=== PATIENT | male | born 1960 | race Caucasian/White ===

== ENCOUNTER → 2016-10-11 | Outpatient (CLI) | payer OTHER ==
--- NOTE | 2016-10-18 11:30 | P.ARTDOP ---
Arterial Doppler LOWER EXTREMITY ARTERIAL DOPPLER: DATE OF SERVICE: 10/11/2016 Reason for study: Bilateral leg pain. Doppler waveforms: Multiphasic bilaterally throughout. Pulse volume recording: Normal configuration throughout. Pressure gradients: None. Ankle-brachial indices: Greater than 1 bilaterally. Toe pressures: 127 on the right, 1:30 on the left Impression: Normal study.
== END | disposition home or self-care (01) ==
LOC: RADUSWWP 10:51
PROVIDERS: ATTEND Family Medicine
DX: M79.669 Pain in unspecified lower leg (principal)
CPT/HCPCS: 93923

== ENCOUNTER → 2018-07-24 | Outpatient (CLI) | payer OTHER ==
--- NOTE | 2018-07-25 10:26 | BD ---
EXAMINATION TYPE: Axial Bone Density DATE OF EXAM: 07/24/2018 COMPARISON: NONE CLINICAL HISTORY: COPD Height: 5'5 1/2 Weight: 192 FRAX RISK QUESTIONS: Family History (Parent hip fracture): Y Glucocorticoids (More than 3mos): y (Ex: prednisone, prednisolone, methylprednisolone, dexamethasone, and hydrocortisone). Secondary Osteoporosis: Current Tobacco Use: y RISK FACTORS HISTORY OF: Active: n Poor Health: y MEDICATIONS: Prednisone or other steroids: y How Lon year Additional Medications: COPD, blood pressure, cholesterol Additional History: EXAM MEASUREMENTS: Bone mineral densitometry was performed using the [facility]. Bone mineral density as measured about the Lumbar spine is: ----- L1-L4(G/cm2): 0.948 T Score Values are as follows: ----- L2: -1.4 ----- L3: -1.9 ----- L4: -2.8 ----- L1-L4: -1.9 Bone mineral density about the R hip (g/cm2): 0.782 Bone mineral density about the L hip (g/cm2): 0.785 T Score values are as follows: -----R Neck: -1.8 -----L Neck: -1.8 -----R Total: -1.6 -----L Total: -1.3 IMPRESSION: Osteopenia (T Score between -2.5 and -1) persists both hips and low back. There is slightly increased risk of fracture and the patient may be considered for treatment. Re-Screen 2-5 years. NOTE: T-SCORE=SD OF THE YOUNG ADULT MEAN.
== END | disposition home or self-care (01) ==
LOC: RADBDWWP 16:16
PROVIDERS: ATTEND Family Medicine
DX: M85.851 Other specified disorders of bone density and structure, right thigh (principal); M85.852 Other specified disorders of bone density and structure, left thigh; M85.88 Other specified disorders of bone density and structure, other site
CPT/HCPCS: 77080

== ENCOUNTER → 2018-09-02 | Outpatient (CLI) | payer OTHER ==
--- NOTE | 2018-09-02 15:33 | CT ---
EXAMINATION TYPE: CT iac wo con DATE OF EXAM: 09/02/2018 COMPARISON: NONE HISTORY: fluid in left ear, chronic mastoiditis per order. CT DLP: 161 mGycm. Automated Exposure Control for Dose Reduction was Utilized. TECHNIQUE: CT scan of internal auditory canal is performed without contrast, thin cut axial images ar e obtained, coronal reformatted images are also reviewed. FINDINGS: The external auditory canals are patent bilaterally. There is evidence of prior mastoid or temporal surgery on the left with complete opacification of the residual left mastoid air cells that show surrounding sclerosis. Right mastoid air cells show no suspicious opacification. The middle ear ossicles are felt within normal limits on the right. There is no evidence of suspicious surrounding soft tissue density to suggest cholesteatoma. Left-sided middle ear ossicles are felt satisfactory w ith diffuse surrounding soft tissue. The scutum is however preserved bilaterally. The cochlea and th e semicircular canals are symmetric and unremarkable. Vestibular aqueduct and internal carotid canal appear unremarkable. Temporomandibular joints are maintained bilaterally. Visualized paranasal sinuses are grossly clear. Visualized portion brain parenchyma is felt within normal limits. IMPRESSION: Persistent left-sided mastoiditis may be acute on chronic despite prior left-sided surger y. There is left middle ear infection, cannot exclude cholesteatoma despite relative preservation of scutum.
== END | disposition home or self-care (01) ==
LOC: RADCTMAIN 14:58
PROVIDERS: ATTEND Otolaryngology Otolaryngology/Facial Plastic Surgery
DX: H66.92 Otitis media, unspecified, left ear (principal); H70.12 Chronic mastoiditis, left ear
CPT/HCPCS: 70480

== ENCOUNTER → 2018-10-21 | Outpatient (CLI) | payer OTHER ==
--- NOTE | 2018-10-21 14:51 | CT ---
EXAMINATION TYPE: CT angio chest DATE OF EXAM: 10/21/2018 COMPARISON: Outside chest CT April 25, 2018 HISTORY: Thoracic aortic aneurysm without rupture CT DLP: 355.2 mGycm. Automated Exposure Control for Dose Reduction was Utilized. CONTRAST: CTA scan of the thorax is performed with IV Contrast, patient injected with 100 mL of Isovue 370, pul monary embolism protocol. MIP Images are created on CT scanner and reviewed. FINDINGS: LUNGS: Moderate underlying emphysematous changes are redemonstrated most prominent in the bilateral u pper lobes. No pleural effusion or pneumothorax. No suspicious consolidation. MEDIASTINUM: There is satisfactory enhancement of the pulmonary artery and its branches, there is no CT evidence for pulmonary embolism. There are no greater than 1 cm hilar or mediastinal lymph nodes. No cardiomegaly or pericardial effusion is seen. Main pulmonary artery measures 2.5 cm diameter ax ial image 22. Adjacent ascending aorta measures 4.1 cm in diameter axial image 22. There is ectatic c ourse to the descending aorta. OTHER: Small degree of bilateral gynecomastia is redemonstrated. Mild to moderate multilevel spurring lower thoracic spine is again seen. IMPRESSION: Stable 4.1 cm ascending aortic aneurysm.
== END | disposition home or self-care (01) ==
LOC: RADCTMAIN 13:03
PROVIDERS: ATTEND Surgery
DX: I71.2 Thoracic aortic aneurysm, without rupture (principal); Z88.0 Allergy status to penicillin
CPT/HCPCS: 82565; 84520; 71275; 36415; Q9967

== ENCOUNTER → 2019-10-24 | Outpatient (CLI) | payer OTHER ==
--- NOTE | 2019-10-24 18:34 | CT ---
EXAMINATION TYPE: CT angio chest DATE OF EXAM: 10/24/2019 6:07 PM COMPARISON: 10/21/2018 HISTORY: Thoracic aortic aneurysm w/out rupture. Pt not reporting any issues CT DLP: 604.60 mGycm Automated exposure control for dose reduction was used. CONTRAST: CTA scan of the thorax is performed with IV Contrast, patient injected with 80 mL of Isovue 370, pulm onary embolism protocol. . FINDINGS: LUNGS: Diffuse emphysematous changes are noted. There is no consolidative process, pleural effusion o r pneumothorax. No suspicious pulmonary nodule. MEDIASTINUM: There is satisfactory enhancement of the pulmonary artery and its branches, there is no CT evidence for pulmonary embolism. There are no greater than 1 cm hilar or mediastinal lymph nodes. Main pulmonary artery measures 2.5 cm diameter axial image 22. Adjacent ascending aorta measures 4. 3 cm and previously measured 4.1 cm in diameter. There is ectatic course to the descending aorta. Cor onary artery calcification noted. OTHER: Small degree of bilateral gynecomastia is redemonstrated. Mild to moderate multilevel spurrin g lower thoracic spine is again seen. Postsurgical change involving the left shoulder. Chronic deform ity of the right rib cage. IMPRESSION: 1. Diffuse COPD with coronary artery calcification. 2. A 4.3 cm ascending thoracic aortic aneurysm previously measuring 4.1 cm.
== END | disposition home or self-care (01) ==
LOC: RADCTMAIN 17:01
PROVIDERS: ATTEND Surgery
DX: I25.10 Atherosclerotic heart disease of native coronary artery without angina pectoris (principal); J44.9 Chronic obstructive pulmonary disease, unspecified; I71.2 Thoracic aortic aneurysm, without rupture; Z88.0 Allergy status to penicillin; Z88.8 Allergy status to other drugs, medicaments and biological substances
CPT/HCPCS: 82565; 84520; 71275; 36415; Q9967

== ENCOUNTER → 2020-01-28 | Outpatient (CLI) | payer OTHER ==
--- NOTE | 2020-01-29 07:15 | US ---
EXAMINATION TYPE: US bladder DATE OF EXAM: 01/28/2020 COMPARISON: CT 06/16/2015 CLINICAL HISTORY: R35.0 frequency of micturition. Diabetic, nighttime frequency per patient x 6 month s. EXAM MEASUREMENTS: Post Void Residual Volume: 1.8 mL Urinary bladder shows an anechoic lumen Mildly thickened bladder wall at 3.5mm A/P, the urinary bladder does not appear well distended magdal[employer] Color Doppler performed to assess ureteral jets. Bilateral Jets seen: yes Normal Post Void Residual (less than 50ml): yes IMPRESSION: No significant post void residual volume, nonspecific bladder wall thickening, correlate to exclude cystitis, findings may be due to lack of distention
== END | disposition home or self-care (01) ==
LOC: RADUSWWP 14:55
PROVIDERS: ATTEND Family Medicine
DX: R93.41 Abnormal radiologic findings on diagnostic imaging of renal pelvis, ureter, or bladder (principal); R35.0 Frequency of micturition
CPT/HCPCS: 76857

== ENCOUNTER 2020-02-15 13:54 | Emergency (ER) | payer OTHER ==
[2020-02-15 14:10] VITALS: BP 123/79; PULSE 79; RESP 20; TEMP 97.8
[2020-02-15] MEDS ORDERED: LIDOCAINE 1%-EPI 1:100,000 20 ML VIAL SQ STA (14:35)
[2020-02-15] MEDS ORDERED: SULFAMETHOX-TMP 800-160MG 1 EACH TAB PO STA (14:35)
--- NOTE | 2020-02-15 15:11 | ED ---
Skin/Abscess/FB HPI - General Chief complaint: Skin/Abscess/Foreign Body Stated complaint: Groin Pain Time Seen by Provider: 02/15/20 14:21 Source: patient Mode of arrival: ambulatory Limitations: no limitations - History of Present Illness Initial comments: 59-year-old male presenting to emergency department with a chief complaint of a boil on his groin. Patient reports this started several days ago with gradual increase in severity. The states she attempted to drain it by pressing on it with no significant success. Patient reports it is very tender to touch. Does report surrounding erythema. Denies any trauma to the region. Denies any history of abscesses or MRSA. Denies any night sweats fevers or chills. - Related Data Home Medications Medication Instructions Recorded Confirmed Albuterol Sulfate [Proair Hfa] 1 - 2 puff INHALATION Q6HR PRN 08/10/15 12/26/17 Cholecalciferol [Vitamin D3] 1,000 unit PO DAILY 08/10/15 12/26/17 Esomeprazole Magnesium [NexIUM] 40 mg PO DAILY 08/10/15 12/26/17 Hydrocodone/Acetaminophen [[place] 1 tab PO Q6H PRN 08/10/15 12/26/17 10-325] Ibuprofen [Motrin] 800 mg PO DAILY 08/10/15 12/26/17 Meclizine [Antivert] 12.5 mg PO ONCE 08/10/15 12/26/17 Multivitamin [Men's Multi-Vitamin] 1 each PO DAILY 08/10/15 12/26/17 Niacin 500 mg PO DAILY 08/10/15 12/26/17 Potassium 99 mg PO DAILY 08/10/15 12/26/17 Simvastatin [Zocor] 40 mg PO HS 08/10/15 12/26/17 gemfibroziL [Lopid] 600 mg PO AC-BID 08/10/15 12/26/17 Previous Rx's Medication Instructions Recorded Cephalexin [Keflex] 500 mg PO Q6HR #40 cap 02/15/20 Sulfamethox-Tmp 800-160Mg [Bactrim 1 each PO Q12HR #20 tab 02/15/20 Ds] Allergies Allergy/AdvReac Type Severity Reaction Status Date / Time aspirin Allergy Unknown Verified 02/15/20 14:10 Penicillins AdvReac Rash/Hives Verified 02/15/20 14:10 Review of Systems ROS Statement: Those systems with pertinent positive or pertinent negative responses have been documented in the HPI. ROS Other: All systems not noted in ROS Statement are negative. Past Medical History Past Medical History: Asthma, COPD, Diabetes Mellitus, GERD/Reflux, Hyperlipidemia, Osteoarthritis (OA), Prostate Disorder Additional Past Medical History / Comment(s): enl. prostate History of Any Multi-Drug Resistant Organisms: None Reported Past Surgical History: Hernia Repair, Orthopedic Surgery Additional Past Surgical History / Comment(s): shoulders, toes,cysts on wrists, colonoscopy Past Anesthesia/Blood Transfusion Reactions: No Reported Reaction Past Psychological History: No Psychological Hx Reported Smoking Status: Current every day smoker Past Alcohol Use History: Occasional Past Drug Use History: None Reported - Past Family History Mother Family Medical History: Cancer General Exam Limitations: no limitations General appearance: alert, in no apparent distress, obese Head exam: Present: atraumatic, normocephalic, normal inspection Eye exam: Present: normal appearance, PERRL, EOMI Pupils: Present: normal accommodation ENT exam: Present: normal exam, normal oropharynx, mucous membranes moist, TM's normal bilaterally, normal external ear exam Neck exam: Present: normal inspection, full ROM. Absent: tenderness Respiratory exam: Present: normal lung sounds bilaterally. Absent: respiratory distress, wheezes, rales Cardiovascular Exam: Present: regular rate, normal rhythm, normal heart sounds. Absent: systolic murmur, diastolic murmur GI/Abdominal exam: Present: soft, other (Abscess noted with minimal drainage in the suprapubic region with surrounding cellulitis.). Absent: distended, rebound Extremities exam: Present: normal inspection, full ROM, normal capillary refill. Absent: tenderness, pedal edema, joint swelling, calf tenderness Back exam: Present: normal inspection, full ROM. Absent: tenderness, CVA tenderness (R), CVA tenderness (L) Neurological exam: Present: alert, oriented X3, CN II-XII intact, normal gait Psychiatric exam: Present: normal affect, normal mood Skin exam: Present: warm, dry, intact, normal color Course Vital Signs 02/15/20 14:06 Temperature 97.8 F Pulse Rate 79 Respiratory 20 Rate Blood Pressure 123/79 O2 Sat by Pulse 97 Oximetry Procedures - Incision & Drainage Consent Obtained: verbal consent Indication: Abscess Site: abdomen Size (cm): 5 Anesthetic Used: lidocaine 1%, with epi Amount (mLs): 5 I&D Cleaning Method: Alcohol Wipe Sterile Field Used?: Yes Scalpel Used: #11 Needle Aspiration Performed?: No Irrigation Performed?: No I&D Drainage Obtained: Pus, Blood Culture Obtained?: Yes Complications: pain, bleeding Patient Tolerated Procedure: well, no complications Medical Decision Making - Medical Decision Making 59-year-old male presenting to emergency Department with a chief complaint of a boil on the skin. Patient has an abscess in the suprapubic region. Overlying cellulitic skin changes noted as well. Patient will be started on Bactrim and Keflex. Incision and drainage performed in significant amount of pus was removed. Wound culture pending. Patient advised to apply warm compresses. Strict return parameters were thoroughly discussed the patient is in the setting agreeable. Case discussed with physician. Disposition Clinical Impression: Skin abscess Disposition: HOME SELF-CARE Condition: Stable Instructions (If sedation given, give patient instructions): Abscess Incision and Drainage (ED), Abscess (ED) Additional Instructions: Take prescribed medication as directed. Apply warm compresses. Follow-up with a primary care physician. Return to emergency department if symptoms worsen. Prescriptions: Sulfamethox-Tmp 800-160Mg [Bactrim Ds] 1 each PO Q12HR #20 tab Cephalexin [Keflex] 500 mg PO Q6HR #40 cap Is patient prescribed a controlled substance at d/c from ED?: No Referrals: Jeison Fitch DO [Primary Care Provider] - 1-2 days Time of Disposition: 15:11
== END 2020-02-15 15:29 | disposition home or self-care (01) ==
LOC: EC 13:54
DX: L02.211 Cutaneous abscess of abdominal wall (principal); L03.311 Cellulitis of abdominal wall; J44.9 Chronic obstructive pulmonary disease, unspecified; K21.9 Gastro-esophageal reflux disease without esophagitis; M19.90 Unspecified osteoarthritis, unspecified site; E78.5 Hyperlipidemia, unspecified; F17.200 Nicotine dependence, unspecified, uncomplicated; Z79.1 Long term (current) use of non-steroidal anti-inflammatories (NSAID); Z79.899 Other long term (current) drug therapy; Z88.0 Allergy status to penicillin; Z88.6 Allergy status to analgesic agent
CPT/HCPCS: 10060; 87070; 87205; 99284

== ENCOUNTER 2020-05-10 21:44 | Emergency (ER) | payer OTHER ==
[2020-05-10] MEDS ORDERED: MORPHINE SULFATE 4 MG/ML SYRINGE IV STA (22:12)
--- NOTE | 2020-05-10 22:15 | ED ---
Chest Pain HPI - General Chief Complaint: Chest Pain Stated Complaint: Chest Pain Time Seen by Provider: 05/10/20 22:00 Source: patient, family Mode of arrival: wheelchair Limitations: no limitations - History of Present Illness Initial Comments: This patient is a 59-year-old man who presents to be evaluated for right-sided chest pain that had come on yesterday in the early afternoon and then has worsened over the interval since then. The pain is now severe, constant, aching. He states it gets worse if he moves or if he tries to cough. He states that there has not been a change in his chronic cough. No shortness of breath. He has not noted fever or chills. No anginal symptoms. MD Complaint: chest pain Onset/Timin -: hour(s) Onset: during rest Pain Location: right chest Pain Radiation: none Severity: severe Quality: aching Consistency: constant Improves With: remaining still Worsens With: inspiration, palpation, movement Treatments Prior to Arrival: none - Related Data Home Medications Medication Instructions Recorded Confirmed Albuterol Sulfate [Proair Hfa] 1 - 2 puff INHALATION Q6HR PRN 08/10/15 12/26/17 Cholecalciferol [Vitamin D3] 1,000 unit PO DAILY 08/10/15 12/26/17 Esomeprazole Magnesium [NexIUM] 40 mg PO DAILY 08/10/15 12/26/17 Hydrocodone/Acetaminophen [[place] 1 tab PO Q6H PRN 08/10/15 12/26/17 10-325] Ibuprofen [Motrin] 800 mg PO DAILY 08/10/15 12/26/17 Meclizine [Antivert] 12.5 mg PO ONCE 08/10/15 12/26/17 Multivitamin [Men's Multi-Vitamin] 1 each PO DAILY 08/10/15 12/26/17 Niacin 500 mg PO DAILY 08/10/15 12/26/17 Potassium 99 mg PO DAILY 08/10/15 12/26/17 Simvastatin [Zocor] 40 mg PO HS 08/10/15 12/26/17 gemfibroziL [Lopid] 600 mg PO AC-BID 08/10/15 12/26/17 Previous Rx's Medication Instructions Recorded Cephalexin [Keflex] 500 mg PO Q6HR #40 cap 02/15/20 Sulfamethox-Tmp 800-160Mg [Bactrim 1 each PO Q12HR #20 tab 02/15/20 Ds] Azithromycin [Zithromax Z-pack (6 250 mg PO DIRECTED #6 tab 05/11/20 tabs)] HYDROcodone/APAP 5-325MG [[place] 1 tab PO Q4HR PRN 3 Days #18 tab 05/11/20 5-325] predniSONE 60 mg PO DAILY #30 tab 05/11/20 Allergies Allergy/AdvReac Type Severity Reaction Status Date / Time aspirin Allergy Unknown Verified 05/10/20 21:50 Penicillins AdvReac Rash/Hives Verified 05/10/20 21:50 Review of Systems ROS Statement: Those systems with pertinent positive or pertinent negative responses have been documented in the HPI. ROS Other: All systems not noted in ROS Statement are negative. Constitutional: Denies: fever, chills, weakness ENT: Denies: congestion Respiratory: Reports: cough (Chronic, no change). Denies: dyspnea, wheezes, hemoptysis, stridor Cardiovascular: Reports: as per HPI, chest pain. Denies: palpitations, dyspnea on exertion, orthopnea, edema, syncope Gastrointestinal: Denies: abdominal pain, nausea, vomiting, diarrhea, melena, hematochezia Genitourinary: Denies: dysuria, hematuria Musculoskeletal: Denies: back pain Skin: Denies: rash Neurological: Denies: headache, weakness, numbness EKG Findings - EKG Results: EKG: interpreted by ERMD, sinus rhythm (With PVC, rate 83 bpm) - Blocks, [place], Hypertrophy, ST Abn: QRS axis and voltage: left axis deviation (-30 to -90) Repolarization changes or abnormalities: nonspecific abnormality, ST segment, and/or T wave Past Medical History Past Medical History: Asthma, COPD, Diabetes Mellitus, GERD/Reflux, Hyperlipidemia, Osteoarthritis (OA), Prostate Disorder Additional Past Medical History / Comment(s): enl. prostate History of Any Multi-Drug Resistant Organisms: None Reported Past Surgical History: Hernia Repair, Orthopedic Surgery Additional Past Surgical History / Comment(s): shoulders, toes,cysts on wrists, colonoscopy Past Anesthesia/Blood Transfusion Reactions: No Reported Reaction Past Psychological History: No Psychological Hx Reported Smoking Status: Current every day smoker Past Alcohol Use History: Occasional Past Drug Use History: None Reported - Past Family History Mother Family Medical History: Cancer General Exam Limitations: no limitations General appearance: alert, in no apparent distress Head exam: Present: atraumatic, normocephalic Eye exam: Present: normal appearance. Absent: scleral icterus, conjunctival injection ENT exam: Present: normal oropharynx Neck exam: Present: normal inspection, full ROM Respiratory exam: Present: wheezes, rhonchi, chest wall tenderness. Absent: respiratory distress, rales, stridor, accessory muscle use, decreased breath sounds, prolonged expiratory Cardiovascular Exam: Present: regular rate, normal rhythm, normal heart sounds. Absent: systolic murmur, diastolic murmur, rubs, gallop GI/Abdominal exam: Present: soft. Absent: distended, tenderness, guarding, rebound, rigid, mass Extremities exam: Present: normal inspection, normal capillary refill. Absent: pedal edema, calf tenderness Back exam: Present: normal inspection. Absent: CVA tenderness (R), CVA tenderness (L), vertebral tenderness Neurological exam: Present: alert Skin exam: Present: warm, dry, intact, normal color. Absent: rash Course Vital Signs 05/10/20 05/10/20 05/10/20 21:46 22:50 23:05 Temperature 97.9 F Pulse Rate 86 77 Pulse Rate [ 73 [employer] ] Respiratory 24 24 20 Rate Blood Pressure 161/95 114/84 O2 Sat by Pulse 96 97 Oximetry 05/10/20 23:58 Temperature 97.8 F Pulse Rate 79 Pulse Rate [ [employer] ] Respiratory 20 Rate Blood Pressure 117/69 O2 Sat by Pulse 96 Oximetry Chest Pain MDM - MDM On reevaluation, patient is feeling better and does want to go home. We discussed the appropriate further care and follow-up. Patient is cautioned about developing pneumonia. Given his underlying comorbidities, will give course of azithromycin. He will have close follow-up and low threshold to return here. Disposition Clinical Impression: Pleuritic chest pain Disposition: HOME SELF-CARE Condition: Fair Instructions (If sedation given, give patient instructions): Pleurisy (DC) Prescriptions: HYDROcodone/APAP 5-325MG [[place] 5-325] 1 tab PO Q4HR PRN 3 Days #18 tab PRN Reason: Pain predniSONE 60 mg PO DAILY #30 tab Azithromycin [Zithromax Z-pack (6 tabs)] 250 mg PO DIRECTED #6 tab Is patient prescribed a controlled substance at d/c from ED?: Yes When asked, does pt state using other controlled substances?: No If prescribed controlled substance>3 days was MAPS reviewed?: Prescribed <3 Days If opioid is for acute pain is fill amount 7 days or less?: Yes If Rx opioid, was Start Talking consent form obtained?: Yes Referrals: Jeison Fitch DO [Primary Care Provider] - 1-2 days
[2020-05-10 22:38] LABS: Basophils # (A) 0.1 k/uL (0-0.2); Basophils % (A) 1 %; Eosinophils # (A) 0.2 k/uL (0-0.7); Eosinophils % (A) 2 %; HCT 39.8 % (39.0-53.0); HGB 13.3 gm/dL (13.0-17.5); Lymphocytes # (A) 2.9 k/uL (1.0-4.8); Lymphocytes % (A) 26 %; MCH 30.3 pg (25.0-35.0); MCHC 33.5 g/dL (31.0-37.0); MCV 90.6 fL (80.0-100.0); Mean Platelet Volume 6.7; Monocytes # (A) 0.6 k/uL (0-1.0); Monocytes % (A) 6 %; Neutrophils % (A) 64 %; Platelet Count 352 k/uL (150-450); RBC 4.39 m/uL (4.30-5.90); RDW 13.7 % (11.5-15.5)
[2020-05-10 22:48] LABS: Albumin 4.1 g/dL (3.5-5.0); Calcium 10.1 mg/dL (8.4-10.2); Potassium 4.1 mmol/L (3.5-5.1); Total Bilirubin 0.4 mg/dL (0.2-1.3); Total Protein 6.6 g/dL (6.3-8.2)
--- NOTE | 2020-05-10 22:50 | XR ---
EXAMINATION TYPE: XR chest 2V DATE OF EXAM: 05/10/2020 COMPARISON: 01/30/2020 HISTORY: COPD. Chest pain TECHNIQUE: 2 views FINDINGS: There is no heart failure nor confluent pneumonic infiltrate. There are no hilar masses. Th ere are pins from right shoulder and left shoulder surgery. The bony thorax is intact. Pulmonary vasc ularity is normal. Costophrenic angles are clear. IMPRESSION: No acute lung disease. Inspiration is decreased slightly compared to old exam. Normal hea rt.
[2020-05-10 23:08] LABS: D-Dimer 0.35 mg/L FEU (<0.60); Prothrombin Time 10.3 sec (9.0-12.0)
[2020-05-10 23:32] LABS: Partial Thromboplastin Time 20.8 sec (22.0-30.0)
[2020-05-10] MEDS ORDERED: HYDROmorphone 0.5 MG/0.5 ML SYRINGE IVP STA (23:38)
[2020-05-11 00:09] VITALS: TEMP 97.8
[2020-05-11] MEDS ORDERED: MAGNESIUM SULFATE-D5W PMX 1 GM in DEXTROSE/WATER 1 100ML.BAG IVPB ONE (00:11)
[2020-05-11] MEDS ORDERED: AZITHROMYCIN 500 MG TAB PO STA (00:36)
[2020-05-11] MEDS ORDERED: predniSONE 20 MG TAB PO STA (00:36)
[2020-05-11 02:02] VITALS: BP 104/88; PULSE 80; RESP 18
== END 2020-05-11 02:02 | disposition home or self-care (01) ==
LOC: EC 21:44
DX: R07.81 Pleurodynia (principal); J44.9 Chronic obstructive pulmonary disease, unspecified; E11.9 Type 2 diabetes mellitus without complications; K21.9 Gastro-esophageal reflux disease without esophagitis; E78.5 Hyperlipidemia, unspecified; M19.90 Unspecified osteoarthritis, unspecified site; N40.0 Benign prostatic hyperplasia without lower urinary tract symptoms; F17.200 Nicotine dependence, unspecified, uncomplicated; Z79.51 Long term (current) use of inhaled steroids; Z79.1 Long term (current) use of non-steroidal anti-inflammatories (NSAID); Z79.84 Long term (current) use of oral hypoglycemic drugs; Z79.899 Other long term (current) drug therapy; Z88.6 Allergy status to analgesic agent; Z88.0 Allergy status to penicillin
CPT/HCPCS: 36415; 93005; 85379; 80053; 82150; 83690; 83735; 84484; 85025; 85610; 85730; 71046; 99285; 96365; 96375 ×2; J2270; J3475; J7512; J1170

== ENCOUNTER 2020-07-02 01:21 | Inpatient (IN) | payer OTHER ==
[2020-07-02 01:31] LABS: Glucose,Whole Blood 189 mg/dL (75-99)
--- NOTE | 2020-07-02 01:37 | ED ---
CPR HPI - General Chief Complaint: Cardiac Arrest/CPR Stated Complaint: Cardiac Arrest Time Seen by Provider: 07/02/20 01:22 Source: EMS Mode of arrival: EMS Limitations: altered mental status - History of Present Illness Initial Comments: Patient is 59-year-old man brought by ambulance after he had become unresponsive at home. All history is from EMS as patient is unresponsive and intubated. EMS states that the patient's had been feeling sick and was diagnosed with Covid a number of days ago. About 2-3 days ago, the patient started showing symptoms as well, and although he was not tested he was assumed to have Covid. Patient having worsening symptoms but resisted going to the hospital. Tonight he became unresponsive at home and ambulance was called. EMS reports that on scene, patient with no vital signs. They instituted ACLS, intubated the patient, started IV, chest compressions, patient had a total of 5 mg epinephrine. On arrival, patient does have ROSC. MD Complaint: found unresponsive -: minute(s) Place: home Bystander CPR Performed: No Shock Advised: No Initial Findings in the Field: unresponsive, no pulse, PEA ROSC in the Field: Yes Associated Injuries: No Treatments Prior to Arrival: intubation, chest compressions, epinephrine mgs # (5) - Related Data Home Medications Medication Instructions Recorded Confirmed Albuterol Sulfate [Proair Hfa] 1 - 2 puff INHALATION Q6HR PRN 08/10/15 12/26/17 Cholecalciferol [Vitamin D3] 1,000 unit PO DAILY 08/10/15 12/26/17 Esomeprazole Magnesium [NexIUM] 40 mg PO DAILY 08/10/15 12/26/17 Hydrocodone/Acetaminophen [[place] 1 tab PO Q6H PRN 08/10/15 12/26/17 10-325] Ibuprofen [Motrin] 800 mg PO DAILY 08/10/15 12/26/17 Meclizine [Antivert] 12.5 mg PO ONCE 08/10/15 12/26/17 Multivitamin [Men's Multi-Vitamin] 1 each PO DAILY 08/10/15 12/26/17 Niacin 500 mg PO DAILY 08/10/15 12/26/17 Potassium 99 mg PO DAILY 08/10/15 12/26/17 Simvastatin [Zocor] 40 mg PO HS 08/10/15 12/26/17 gemfibroziL [Lopid] 600 mg PO AC-BID 08/10/15 12/26/17 Previous Rx's Medication Instructions Recorded Cephalexin [Keflex] 500 mg PO Q6HR #40 cap 02/15/20 Sulfamethox-Tmp 800-160Mg [Bactrim 1 each PO Q12HR #20 tab 02/15/20 Ds] Azithromycin [Zithromax Z-pack (6 250 mg PO DIRECTED #6 tab 05/11/20 tabs)] HYDROcodone/APAP 5-325MG [[place] 1 tab PO Q4HR PRN 3 Days #18 tab 05/11/20 5-325] predniSONE 60 mg PO DAILY #30 tab 05/11/20 Allergies Allergy/AdvReac Type Severity Reaction Status Date / Time aspirin Allergy Unknown Verified 05/10/20 21:50 Penicillins AdvReac Rash/Hives Verified 05/10/20 21:50 Review of Systems ROS Statement: Those systems with pertinent positive or pertinent negative responses have been documented in the HPI. ROS Other: All systems not noted in ROS Statement are negative. Limitations: ROS unobtainable due to patients medical condition Respiratory: Reports: dyspnea Past Medical History Past Medical History: Asthma, COPD, Diabetes Mellitus, GERD/Reflux, Hyperlipidemia, Osteoarthritis (OA), Prostate Disorder Additional Past Medical History / Comment(s): enl. prostate History of Any Multi-Drug Resistant Organisms: None Reported Past Surgical History: Hernia Repair, Orthopedic Surgery Additional Past Surgical History / Comment(s): shoulders, toes,cysts on wrists, colonoscopy Past Anesthesia/Blood Transfusion Reactions: No Reported Reaction Past Psychological History: No Psychological Hx Reported Smoking Status: Current every day smoker Past Alcohol Use History: Occasional Past Drug Use History: None Reported - Past Family History Mother Family Medical History: Cancer General Exam Limitations: altered mental status General appearance: obtunded Head exam: Present: atraumatic, normocephalic Eye exam: Absent: scleral icterus, conjunctival injection ENT exam: Present: other (Patient intubated.) Neck exam: Present: normal inspection. Absent: tenderness Respiratory exam: Present: rales, rhonchi. Absent: wheezes, stridor Cardiovascular Exam: Present: regular rate, normal rhythm, normal heart sounds. Absent: systolic murmur, diastolic murmur, rubs, gallop GI/Abdominal exam: Present: soft, mass. Absent: distended, tenderness, guarding, rebound, rigid Extremities exam: Present: normal inspection, normal capillary refill. Absent: pedal edema, calf tenderness Back exam: Present: normal inspection. Absent: CVA tenderness (R), CVA tenderness (L) Neurological exam: Present: other (GCS is 3. No cranial or deep tendon reflexes.). Absent: oriented X3, CN II-XII intact, reflexes normal Skin exam: Present: warm, dry, intact, normal color. Absent: rash Course Vital Signs 07/02/20 07/02/20 07/02/20 02:30 02:45 03:00 Temperature Pulse Rate 80 74 69 Respiratory 16 16 16 Rate Blood Pressure 100/55 61/27 54/31 O2 Sat by Pulse 98 98 99 Oximetry 07/02/20 07/02/20 07/02/20 03:15 03:30 03:45 Temperature 97.8 F Pulse Rate 68 70 70 Respiratory 16 16 16 Rate Blood Pressure 66/34 67/26 64/37 O2 Sat by Pulse 98 99 98 Oximetry 07/02/20 07/02/20 07/02/20 04:16 04:33 04:47 Temperature Pulse Rate 75 73 75 Respiratory 16 16 16 Rate Blood Pressure 73/42 67/37 72/30 O2 Sat by Pulse 99 99 Oximetry 07/02/20 07/02/20 07/02/20 05:02 05:15 05:40 Temperature Pulse Rate 79 54 L 65 Respiratory 16 16 16 Rate Blood Pressure 95/52 51/26 50/29 O2 Sat by Pulse 98 94 L Oximetry 07/02/20 07/02/20 05:53 06:00 Temperature Pulse Rate 80 77 Respiratory 16 16 Rate Blood Pressure 109/67 91/55 O2 Sat by Pulse 91 L 91 L Oximetry Procedures - Central Line Placement Right Femoral Consent Obtained: emergent situation Patient Placed on Monitor/Pulse Ox: Yes Prep: mask, gown, gloves Central Line Prep: Chlorhexidine scrub Local Anesthesia Used: Lidocaine 1% Central Line Lumen Inserted: triple Central Line Position: good blood return, all ports aspirated, flushed, capped, sutured in place with nylon Dressing Applied: Tegaderm Patient Tolerated Procedure: well Complications: none Medical Decision Making - Medical Decision Making Patient is 59-year-old man with a suspected covid became unresponsive at home. Resuscitated by EMS. Patient with Covid pneumonia. Severe acidosis. Acute kidney injury. Hypotension. The patient did require subsequent CPR here in emergency department. Central line placed for multiple medications and pressor support Patient admitted. Case discussed with transporter driver. Their recommendations incorporated. - Lab Data Result diagrams: 07/02/20 01:44 07/02/20 03:42 Lab Results 07/02/20 07/02/20 07/02/20 Range/Units 01:29 01:44 01:44 WBC 6.9 (3.8-10.6) k/uL RBC 4.48 (4.30-5.90) m/uL Hgb 13.7 (13.0-17.5) gm/dL Hct 42.3 (39.0-53.0) % MCV 94.5 (80.0-100.0) fL MCH 30.6 (25.0-35.0) pg MCHC 32.3 (31.0-37.0) g/dL RDW 13.9 (11.5-15.5) % Plt Count 265 (150-450) k/uL MPV 8.4 Neutrophils % Not Reportable Neutrophils % (Manual) 66 % Band Neuts % (Manual) 11 % Lymphocytes % Not Reportable Lymphocytes % (Manual) 17 % Monocytes % Not Reportable Monocytes % (Manual) 7 % Eosinophils % Not Reportable Basophils % Not Reportable Metamyelocytes % 1 % Myelocytes % 1 % Neutrophils # Not Reportable Neutrophils # (Manual) 5.30 (1.3-7.7) k/uL Lymphocytes # Not Reportable Lymphocytes # (Manual) 1.17 (1.0-4.8) k/uL Monocytes # Not Reportable Monocytes # (Manual) 0.48 (0-1.0) k/uL Eosinophils # Not Reportable Basophils # Not Reportable Metamyelocytes # (Man) 0.07 H (0) k/uL Myelocytes # (Manual) 0.07 H (0) k/uL Nucleated RBCs 4 H (0-0) /100 WBC Manual Slide Review Performed Polychromasia Present Hypochromasia Moderate Anisocytosis (manual) Present PT 12.6 H (9.0-12.0) sec INR 1.2 H (<1.2) APTT 29.2 (22.0-30.0) sec Sample Site ABG pH (7.35-7.45) ABG pCO2 (35-45) mmHg ABG pO2 (83-108) mmHg ABG HCO3 (21-25) mmol/L ABG Total CO2 (19-24) mmol/L ABG O2 Saturation (94-97) % ABG Base Excess mmol/L Kuldip Test FiO2 % Sodium (137-145) mmol/L Potassium (3.5-5.1) mmol/L Chloride (98-107) mmol/L Carbon Dioxide (22-30) mmol/L Anion Gap mmol/L BUN (9-20) mg/dL Creatinine (0.66-1.25) mg/dL Est GFR (CKD-EPI)AfAm (>60 ml/min/1.73 sqM) Est GFR (CKD-EPI)NonAf (>60 ml/min/1.73 sqM) Glucose (74-99) mg/dL POC Glucose (mg/dL) 189 H (75-99) mg/dL POC Glu Refinery Operator Reforming Unit ID Blanka Mcclellan Lactic Ac Sepsis Rflx Plasma Lactic Acid Raymond (0.7-2.0) mmol/L Calcium (8.4-10.2) mg/dL Magnesium (1.6-2.3) mg/dL Total Bilirubin (0.2-1.3) mg/dL AST (17-59) U/L ALT (4-49) U/L Alkaline Phosphatase (38-126) U/L Troponin I (0.000-0.034) ng/mL NT-Pro-B Natriuret Pep pg/mL Total Protein (6.3-8.2) g/dL Albumin (3.5-5.0) g/dL Urine Color Urine Appearance (Clear) Urine pH (5.0-8.0) Ur Specific Vaughn (1.001-1.035) Urine Protein (Negative) Urine Glucose (UA) (Negative) Urine Ketones (Negative) Urine Blood (Negative) Urine Nitrite (Negative) Urine Bilirubin (Negative) Urine Urobilinogen (<2.0) mg/dL Ur Leukocyte Esterase (Negative) Urine RBC (0-5) /hpf Urine WBC (0-5) /hpf 07/02/20 07/02/20 07/02/20 Range/Units 01:44 01:44 01:44 WBC (3.8-10.6) k/uL RBC (4.30-5.90) m/uL Hgb (13.0-17.5) gm/dL Hct (39.0-53.0) % MCV (80.0-100.0) fL MCH (25.0-35.0) pg MCHC (31.0-37.0) g/dL RDW (11.5-15.5) % Plt Count (150-450) k/uL MPV Neutrophils % Neutrophils % (Manual) % Band Neuts % (Manual) % Lymphocytes % Lymphocytes % (Manual) % Monocytes % Monocytes % (Manual) % Eosinophils % Basophils % Metamyelocytes % % Myelocytes % % Neutrophils # Neutrophils # (Manual) (1.3-7.7) k/uL Lymphocytes # Lymphocytes # (Manual) (1.0-4.8) k/uL Monocytes # Monocytes # (Manual) (0-1.0) k/uL Eosinophils # Basophils # Metamyelocytes # (Man) (0) k/uL Myelocytes # (Manual) (0) k/uL Nucleated RBCs (0-0) /100 WBC Manual Slide Review Polychromasia Hypochromasia Anisocytosis (manual) PT (9.0-12.0) sec INR (<1.2) APTT (22.0-30.0) sec Sample Site ABG pH (7.35-7.45) ABG pCO2 (35-45) mmHg ABG pO2 (83-108) mmHg ABG HCO3 (21-25) mmol/L ABG Total CO2 (19-24) mmol/L ABG O2 Saturation (94-97) % ABG Base Excess mmol/L Kuldip Test FiO2 % Sodium 140 (137-145) mmol/L Potassium 6.5 H* (3.5-5.1) mmol/L Chloride 94 L (98-107) mmol/L Carbon Dioxide 10 L (22-30) mmol/L Anion Gap 36 mmol/L BUN 84 H (9-20) mg/dL Creatinine 4.53 H (0.66-1.25) mg/dL Est GFR (CKD-EPI)AfAm 15 (>60 ml/min/1.73 sqM) Est GFR (CKD-EPI)NonAf 13 (>60 ml/min/1.73 sqM) Glucose 218 H (74-99) mg/dL POC Glucose (mg/dL) (75-99) mg/dL POC Glu Refinery Operator Reforming Unit ID Lactic Ac Sepsis Rflx Plasma Lactic Acid Raymond 18.8 H* (0.7-2.0) mmol/L Calcium 9.9 (8.4-10.2) mg/dL Magnesium 2.9 H (1.6-2.3) mg/dL Total Bilirubin 1.0 (0.2-1.3) mg/dL AST 6419 H (17-59) U/L ALT 2028 H (4-49) U/L Alkaline Phosphatase 129 H (38-126) U/L Troponin I 0.478 H* (0.000-0.034) ng/mL NT-Pro-B Natriuret Pep pg/mL Total Protein 5.9 L (6.3-8.2) g/dL Albumin 3.5 (3.5-5.0) g/dL Urine Color Urine Appearance (Clear) Urine pH (5.0-8.0) Ur Specific Vaughn (1.001-1.035) Urine Protein (Negative) Urine Glucose (UA) (Negative) Urine Ketones (Negative) Urine Blood (Negative) Urine Nitrite (Negative) Urine Bilirubin (Negative) Urine Urobilinogen (<2.0) mg/dL Ur Leukocyte Esterase (Negative) Urine RBC (0-5) /hpf Urine WBC (0-5) /hpf 07/02/20 07/02/20 07/02/20 Range/Units 01:44 02:22 02:35 WBC (3.8-10.6) k/uL RBC (4.30-5.90) m/uL Hgb (13.0-17.5) gm/dL Hct (39.0-53.0) % MCV (80.0-100.0) fL MCH (25.0-35.0) pg MCHC (31.0-37.0) g/dL RDW (11.5-15.5) % Plt Count (150-450) k/uL MPV Neutrophils % Neutrophils % (Manual) % Band Neuts % (Manual) % Lymphocytes % Lymphocytes % (Manual) % Monocytes % Monocytes % (Manual) % Eosinophils % Basophils % Metamyelocytes % % Myelocytes % % Neutrophils # Neutrophils # (Manual) (1.3-7.7) k/uL Lymphocytes # Lymphocytes # (Manual) (1.0-4.8) k/uL Monocytes # Monocytes # (Manual) (0-1.0) k/uL Eosinophils # Basophils # Metamyelocytes # (Man) (0) k/uL Myelocytes # (Manual) (0) k/uL Nucleated RBCs (0-0) /100 WBC Manual Slide Review Polychromasia Hypochromasia Anisocytosis (manual) PT (9.0-12.0) sec INR (<1.2) APTT (22.0-30.0) sec Sample Site ABG pH (7.35-7.45) ABG pCO2 (35-45) mmHg ABG pO2 (83-108) mmHg ABG HCO3 (21-25) mmol/L ABG Total CO2 (19-24) mmol/L ABG O2 Saturation (94-97) % ABG Base Excess mmol/L Kuldip Test FiO2 % Sodium (137-145) mmol/L Potassium (3.5-5.1) mmol/L Chloride (98-107) mmol/L Carbon Dioxide (22-30) mmol/L Anion Gap mmol/L BUN (9-20) mg/dL Creatinine (0.66-1.25) mg/dL Est GFR (CKD-EPI)AfAm (>60 ml/min/1.73 sqM) Est GFR (CKD-EPI)NonAf (>60 ml/min/1.73 sqM) Glucose (74-99) mg/dL POC Glucose (mg/dL) (75-99) mg/dL POC Glu Refinery Operator Reforming Unit ID Lactic Ac Sepsis Rflx Y Plasma Lactic Acid Raymond (0.7-2.0) mmol/L Calcium (8.4-10.2) mg/dL Magnesium (1.6-2.3) mg/dL Total Bilirubin (0.2-1.3) mg/dL AST (17-59) U/L ALT (4-49) U/L Alkaline Phosphatase (38-126) U/L Troponin I (0.000-0.034) ng/mL NT-Pro-B Natriuret Pep 5210 pg/mL Total Protein (6.3-8.2) g/dL Albumin (3.5-5.0) g/dL Urine Color Yellow Urine Appearance Cloudy (Clear) Urine pH 5.0 (5.0-8.0) Ur Specific Vaughn 1.016 (1.001-1.035) Urine Protein 1+ H (Negative) Urine Glucose (UA) Negative (Negative) Urine Ketones Trace H (Negative) Urine Blood Trace H (Negative) Urine Nitrite Negative (Negative) Urine Bilirubin Negative (Negative) Urine Urobilinogen 2.0 (<2.0) mg/dL Ur Leukocyte Esterase Negative (Negative) Urine RBC 1 (0-5) /hpf Urine WBC 1 (0-5) /hpf 07/02/20 07/02/20 Range/Units 02:53 03:42 WBC (3.8-10.6) k/uL RBC (4.30-5.90) m/uL Hgb (13.0-17.5) gm/dL Hct (39.0-53.0) % MCV (80.0-100.0) fL MCH (25.0-35.0) pg MCHC (31.0-37.0) g/dL RDW (11.5-15.5) % Plt Count (150-450) k/uL MPV Neutrophils % Neutrophils % (Manual) % Band Neuts % (Manual) % Lymphocytes % Lymphocytes % (Manual) % Monocytes % Monocytes % (Manual) % Eosinophils % Basophils % Metamyelocytes % % Myelocytes % % Neutrophils # Neutrophils # (Manual) (1.3-7.7) k/uL Lymphocytes # Lymphocytes # (Manual) (1.0-4.8) k/uL Monocytes # Monocytes # (Manual) (0-1.0) k/uL Eosinophils # Basophils # Metamyelocytes # (Man) (0) k/uL Myelocytes # (Manual) (0) k/uL Nucleated RBCs (0-0) /100 WBC Manual Slide Review Polychromasia Hypochromasia Anisocytosis (manual) PT (9.0-12.0) sec INR (<1.2) APTT (22.0-30.0) sec Sample Site lfem ABG pH 6.81 L* (7.35-7.45) ABG pCO2 73 H* (35-45) mmHg ABG pO2 46 L* (83-108) mmHg ABG HCO3 11 L (21-25) mmol/L ABG Total CO2 14 L (19-24) mmol/L ABG O2 Saturation 46.3 L (94-97) % ABG Base Excess -23.0 mmol/L Kuldip Test no FiO2 100 % Sodium 140 (137-145) mmol/L Potassium 5.7 H (3.5-5.1) mmol/L Chloride 109 H (98-107) mmol/L Carbon Dioxide 12 L (22-30) mmol/L Anion Gap 19 mmol/L BUN 68 H (9-20) mg/dL Creatinine 3.51 H (0.66-1.25) mg/dL Est GFR (CKD-EPI)AfAm 20 (>60 ml/min/1.73 sqM) Est GFR (CKD-EPI)NonAf 18 (>60 ml/min/1.73 sqM) Glucose 146 H (74-99) mg/dL POC Glucose (mg/dL) (75-99) mg/dL POC Glu Refinery Operator Reforming Unit ID Lactic Ac Sepsis Rflx Plasma Lactic Acid Raymond (0.7-2.0) mmol/L Calcium 6.6 L (8.4-10.2) mg/dL Magnesium (1.6-2.3) mg/dL Total Bilirubin 0.6 (0.2-1.3) mg/dL AST 6941 H (17-59) U/L ALT 2094 H (4-49) U/L Alkaline Phosphatase 101 (38-126) U/L Troponin I (0.000-0.034) ng/mL NT-Pro-B Natriuret Pep pg/mL Total Protein 3.8 L (6.3-8.2) g/dL Albumin 2.0 L (3.5-5.0) g/dL Urine Color Urine Appearance (Clear) Urine pH (5.0-8.0) Ur Specific Vaughn (1.001-1.035) Urine Protein (Negative) Urine Glucose (UA) (Negative) Urine Ketones (Negative) Urine Blood (Negative) Urine Nitrite (Negative) Urine Bilirubin (Negative) Urine Urobilinogen (<2.0) mg/dL Ur Leukocyte Esterase (Negative) Urine RBC (0-5) /hpf Urine WBC (0-5) /hpf - EKG Data EKG shows normal: sinus rhythm, axis (Normal), intervals (RI interval 184 ms, QTC 532 ms. QRS duration is 152 ms which is prolonged.), QRS complexes (Right bundle-branch block pattern) Rate: tachycardia Interpretation: nonspecific ST-T wave changes Critical Care Time Critical Care Time: Yes (60 minutes) Disposition Clinical Impression: Acute respiratory failure, Cardiac arrest, COVID-19, Lactic acidosis, Acute kidney injury, Elevated troponin I level Disposition: ADMITTED IP TO THIS [facility] Condition: Critical
[2020-07-02 01:52] LABS: HCT 42.3 % (39.0-53.0); HGB 13.7 gm/dL (13.0-17.5); Hypochromasia Moderate; MCH 30.6 pg (25.0-35.0); MCHC 32.3 g/dL (31.0-37.0); MCV 94.5 fL (80.0-100.0); Mean Platelet Volume 8.4; Platelet Count 265 k/uL (150-450); RBC 4.48 m/uL (4.30-5.90); RDW 13.9 % (11.5-15.5)
[2020-07-02] MEDS ORDERED: NOREPINEPHRINE 8 MG in SODIUM CHLORIDE 0.9% 250 ML IV ONE (02:00)
[2020-07-02 02:18] LABS: Albumin 3.5 g/dL (3.5-5.0); Calcium 9.9 mg/dL (8.4-10.2); Magnesium 2.9 mg/dL (1.6-2.3); Total Protein 5.9 g/dL (6.3-8.2)
[2020-07-02 02:20] LABS: INR 1.2 (<1.2); Partial Thromboplastin Time 29.2 sec (22.0-30.0); Prothrombin Time 12.6 sec (9.0-12.0)
[2020-07-02 02:34] LABS: Potassium 6.5 mmol/L (3.5-5.1)
--- NOTE | 2020-07-02 02:36 | XR ---
EXAM: XR Chest, 1 View CLINICAL HISTORY: ITS.REASON XR Reason: intubated TECHNIQUE: Frontal view of the chest. COMPARISON: 01/30/2020 FINDINGS: Lungs: Diffuse reticular opacities. Patchy consolidation in the right base. Pleural space: Unremarkable. No pneumothorax. Heart: Unremarkable. No cardiomegaly. Mediastinum: Unremarkable. Bones/joints: Unremarkable. Lines and tubes: Endotracheal tube terminates 6.3 cm above the level of the jacqueline. Nasogastric tube terminates in the proximal stomach. IMPRESSION: 1. Diffuse reticular opacities consistent with interstitial pulmonary edema. Patchy consolidation in the right base which may be due to edema, aspiration or infection. 2. Endotracheal tube terminates 6.3 cm above the level of the jacqueline. Nasogastric tube terminates in the proximal stomach.
[2020-07-02 02:48] LABS: Appearance,Urine Cloudy (Clear); Bilirubin,Urine Negative (Negative); Blood,Urine Trace (Negative); Color,Urine Yellow; Glucose,Urine (UA) Negative (Negative); Ketones,Urine Trace (Negative); Leukocyte Esterase,Urine Negative (Negative); Nitrite,Urine Negative (Negative); Protein,Urine 1+ (Negative); RBC,Urine 1 /hpf (0-5); Specific Gravity,Urine 1.016 (1.001-1.035); WBC,Urine 1 /hpf (0-5)
[2020-07-02] MEDS ORDERED: SODIUM CHLORIDE 0.9% 1,000 ML IV ONE ×3 (02:56→04:25)
[2020-07-02] MEDS ORDERED: SODIUM CHLORIDE 0.9% 1,000 ML IV STA (02:56)
[2020-07-02 02:58] LABS: ABG HCO3 11 mmol/L (21-25); ABG Oxygen Saturation 46.3 % (94-97); ABG TCO2 14 mmol/L (19-24)
[2020-07-02 03:09] LABS: ABG PCO2 73 mmHg (35-45); ABG PH 6.81 (7.35-7.45)
[2020-07-02 03:10] LABS: ABG PO2 46 mmHg (83-108); Allen Test Performed? no
[2020-07-02 03:13] LABS: Anisocytosis (M) Present; Band Neutrophils % 11 %; Lymphocytes # (M) 1.17 k/uL (1.0-4.8); Metamyelocytes # (M) 0.07 k/uL (0); Metamyelocytes % 1 %; Monocytes # (M) 0.48 k/uL (0-1.0); Myelocytes # (M) 0.07 k/uL (0); Myelocytes % 1 %; Neutrophils % (M) 66 %; Nucleated Red Blood Cells 4 /100 WBC (0-0); Polychromasia Present; Total Cells Counted 200; WBC 6.9 k/uL (3.8-10.6)
[2020-07-02] MEDS ORDERED: EPINEPHrine 4 MG in DEXTROSE 5% IN WATER 250 ML IV ONE ×2 (03:15)
[2020-07-02] MEDS ORDERED: DEXTROSE 5% IN WATER 1,000 ML with SODIUM BICARB (1 MEQ/ML) 150 ML IV SCH (03:30)
[2020-07-02 03:32] VITALS: TEMP 97.8
[2020-07-02] MEDS ORDERED: DEXAMETHASONE SOD PHOSPHATE 4 MG/ML 1 ML VIAL IV STA (03:47)
[2020-07-02] MEDS: DEXAMETHASONE SOD PHOSPHATE 10 MG/ML 1 ML VIAL IV SCH ×2 (04:02→11:02)
[2020-07-02 04:11] LABS: Calcium 6.6 mg/dL (8.4-10.2); Potassium 5.7 mmol/L (3.5-5.1); Total Bilirubin 0.6 mg/dL (0.2-1.3); Total Protein 3.8 g/dL (6.3-8.2)
[2020-07-02] MEDS ORDERED: ACETAMINOPHEN SUPPOSITORY 650 MG SUPP RECTAL PRN (04:55)
[2020-07-02] MEDS ORDERED: NALOXONE 0.4 MG/ML 1 ML VIAL IV PRN (04:55)
[2020-07-02] MEDS ORDERED: SODIUM CHLORIDE 0.9% 1,000 ML IV SCH (05:00)
[2020-07-02] MEDS ORDERED: NOREPINEPHRINE 32 MG in SODIUM CHLORIDE 0.9% 218 ML IV SCH (05:00)
[2020-07-02] MEDS ORDERED: SODIUM CHLORIDE 0.9% 150 ML with VASOPRESSIN 60 UNIT IV SCH ×2 (05:15)
[2020-07-02] MEDS ORDERED: ARTIFICIAL TEARS OINTMENT 3.5 GM TUBE BOTH EYES PRN (08:00)
[2020-07-02 08:04] LABS: ABG HCO3 14 mmol/L (21-25); ABG Oxygen Saturation 57.2 % (94-97); ABG TCO2 17 mmol/L (19-24); Allen Test Performed? Yes
[2020-07-02 08:27] LABS: ABG PCO2 82 mmHg (35-45); ABG PH 6.84 (7.35-7.45); ABG PO2 50 mmHg (83-108)
[2020-07-02] MEDS ORDERED: FAMOTIDINE 20 MG/2 ML VIAL IV SCH (09:00)
[2020-07-02 09:27] LABS: ABG Base Excess -19.4 mmol/L; ABG HCO3 14 mmol/L (21-25); ABG Oxygen Saturation 77.8 % (94-97); ABG PO2 67 mmHg (83-108); ABG TCO2 16 mmol/L (19-24); Allen Test Performed? Yes
[2020-07-02 09:30] LABS: ABG PCO2 73 mmHg (35-45); ABG PH 6.88 (7.35-7.45)
--- NOTE | 2020-07-02 09:45 | P.CNPUL ---
<Sarah Pichardo M - Last Filed: 07/02/20 09:17> History of Present Illness Consult date: 07/02/20 Reason for consult: other Chief complaint: Acute cardiac arrest History of present illness: This is a 59-year-old white male patient with the multiple chronic medical conditions including COPD on home oxygen, diabetes mellitus2, hypertension, hyp erlipidemia, current every day smoker, history of thoracic aortic aneurysm per family, poor medical compliance, who was brought into the emergency department on 07/02/2020 after becoming unresponsive at home. Patient's was found to be positive for for one week, and patient had not been feeling good at home, he was sleeping a lot, he hadn't eaten or taken any of his medications since last Sunday. Patient was not tested for COVID 19. Family estimates that patient had been unresponsive at home for about an hour, EMS reports that on the scene patient had no vital signs, he was in PEA, previously instituted ACLS, intubated the patient, started IV, patient received chest compressions, and multiple rounds of epinephrine with ROSC. Upon arrival to the emergency department patient had arrested 3 more times and was in PEA with no shockable rhythm, received CPR, received epinephrine and he is currently remains intubated on mechanical ventilator with the vent settings assist control mode of ventilation with the rate of 28, tidal volume is 500, FiO2 100%, and PEEP of 15, his blood work has been shown positive COVID test, severe hypercapnic and metabolic acidosis, latest blood gas shows pO2 of 50, pCO2 of 82, and pH of 6.84 and this was done on the above mentioned settings, patient was given a total of 3 L in fluid boluses, he currently has 0.9 normal saline running at 125 ML per hour, his norepinephrine is running at 0.9 mics per kilo per minute which is about 81 mics per minute, and epinephrine at 0.01 mics per kilo per minute, and vasopressin is at 0.03 units per minute. Chest x-ray shows a diffuse reticular opacities consistent with interstitial pulmonary edema, patchy consolidation in the right base which may be due to edema aspiration or infection, and ET tube at 6.3 cm above the level of the jacqueline, patient is on no sedation, she is unresponsive to deep painful stimuli, he has no gag and no corneal reflexes, and he has no spontaneous respirations, exam is consistent with severe anoxic brain injury. Patient nat on high-dose vasopressors, he is in sinus mechanism right now with a branch block. Today's blood work shows white blood cell count is 6.9, hemoglobin of 13.7, INR 1.2, acute kidney injury with B1 of 68, and creatinine of 3.5, potassium was 5.7, CO2 was 12, chloride was 109, and serum sodium was 140, his AST is 6941, ALT is 2094, lactic acidosis was at 13.9 after fluid resuscitation, glucose level of 146, urinalysis showed no signs of infection. Review of Systems All systems: negative Constitutional: Reports fatigue, Reports lethargy, Reports malaise, Reports weakness, Denies chills, Denies fever Eyes: denies blurred vision, denies pain Ears, nose, mouth and throat: Denies headache, Denies sore throat Cardiovascular: Denies chest pain, Denies shortness of breath Respiratory: Reports dyspnea, Reports home oxygen, Denies cough Gastrointestinal: Denies abdominal pain, Denies diarrhea, Denies nausea, Denies vomiting Musculoskeletal: Denies myalgias Integumentary: Denies pruritus, Denies rash Neurological: Reports change in mentation, Denies numbness, Denies weakness Psychiatric: Denies anxiety, Denies depression Endocrine: Denies fatigue, Denies weight change Past Medical History Past Medical History: Asthma, COPD, Diabetes Mellitus, GERD/Reflux, Hyperlipidemia, Osteoarthritis (OA), Prostate Disorder Additional Past Medical History / Comment(s): enl. prostate History of Any Multi-Drug Resistant Organisms: None Reported Past Surgical History: Hernia Repair, Orthopedic Surgery Additional Past Surgical History / Comment(s): shoulders, toes,cysts on wrists, colonoscopy Past Anesthesia/Blood Transfusion Reactions: No Reported Reaction Past Psychological History: No Psychological Hx Reported Smoking Status: Current every day smoker Past Alcohol Use History: Occasional Past Drug Use History: None Reported - Past Family History Mother Family Medical History: Cancer Medications and Allergies Home Medications Medication Instructions Recorded Confirmed Type Ibuprofen [Motrin] 800 mg PO TID PRN 08/10/15 07/02/20 History Multivitamin [Men's Multi-Vitamin] 1 tab PO DAILY 08/10/15 07/02/20 History Niacin 500 mg PO DAILY 08/10/15 07/02/20 History gemfibroziL [Lopid] 600 mg PO AC-BID 08/10/15 07/02/20 History Albuterol Sulfate [Proair Hfa] 2 puff INHALATION RT-QID PRN 07/02/20 07/02/20 History Atorvastatin [Lipitor] 20 mg PO HS 07/02/20 07/02/20 History Calcium Carbonate/Vitamin D3 1 tab PO DAILY 07/02/20 07/02/20 History [Calcium 600 mg-Vit D3 10 mcg (400 Unit)] Fluticasone/Salmeterol [Advair 1 puff INHALATION RT-BID 07/02/20 07/02/20 History 250-50 Diskus] Gabapentin [Neurontin] 100 mg PO BID 07/02/20 07/02/20 History Hydrocodone/Acetaminophen [[place] 1 tab PO TID PRN 07/02/20 07/02/20 History 7.5-325] Ipratropium-Albuterol Nebulize 3 ml INHALATION RT-QID 07/02/20 07/02/20 History [Duoneb 0.5 mg-3 mg/3 ml Soln] Meclizine [Antivert] 25 mg PO TID PRN 07/02/20 07/02/20 History Metoprolol Tartrate [Lopressor] 25 mg PO DAILY 07/02/20 07/02/20 History Omeprazole [PriLOSEC] 40 mg PO DAILY 07/02/20 07/02/20 History Pioglitazone [Actos] 15 mg PO DAILY 07/02/20 07/02/20 History Theophylline 24 Hour [Brent-24] 400 mg PO DAILY 07/02/20 07/02/20 History predniSONE 10 mg PO DAILY 07/02/20 07/02/20 History Allergies Allergy/AdvReac Type Severity Reaction Status Date / Time aspirin Allergy Unknown Verified 07/02/20 08:25 Penicillins Allergy Rash/Hives Verified 07/02/20 08:25 Physical Exam Vitals: Vital Signs Temp Pulse Resp BP Pulse Ox 07/02/20 07:40 84 16 95/61 61 L 07/02/20 07:35 84 16 97/65 61 L 07/02/20 06:00 77 16 91/55 91 L 07/02/20 05:53 80 16 109/67 91 L 07/02/20 05:40 65 16 50/29 94 L 07/02/20 05:15 54 L 16 51/26 07/02/20 05:02 79 16 95/52 98 07/02/20 04:47 75 16 72/30 07/02/20 04:33 73 16 67/37 99 07/02/20 04:16 75 16 73/42 99 07/02/20 03:45 70 16 64/37 98 07/02/20 03:30 97.8 F 70 16 67/26 99 07/02/20 03:15 68 16 66/34 98 07/02/20 03:00 69 16 54/31 99 07/02/20 02:45 74 16 61/27 98 07/02/20 02:30 80 16 100/55 98 Intake and Output 07/01/20 07/02/20 07/02/20 22:59 06:59 14:59 Intake Total 302.465 Output Total 650 Balance 302.465 -650 Intake: Intake, IV Titration 302.465 Amount EPINEPHrine 4 mg In 44.465 Dextrose 5% in Water 250 ml @ 0.01 MCG/KG/MIN 3. 429 mls/hr IV .Q24H ONE Rx#:[id number] Norepinephrine 8 mg In 258.000 Sodium Chloride 0.9% 250 ml @ 0.05 MCG/KG/MIN 8. 777 mls/hr IV .Q24H ONE Rx#:[id number] Output: Gastric Drainage 350 Urine 300 Other: Weight 90.718 kg GENERAL EXAM: Unresponsive, 59-year-old white male, resting on gurney in the emergency department, intubated, on assist control mode of ventilation, with FiO2 100% and currently PEEP was increased to 20. he is not receiving any sedation, status post cardiac arrest 4 HEAD: Normocephalic/atraumatic. EYES: Sluggish reaction of pupils, equal size. Conjunctiva pink, sclera white. NOSE: Clear with pink turbinates. THROAT: No erythema or exudates. NECK: No masses, no JVD, no thyroid enlargement, no adenopathy. CHEST: No chest wall deformity. Symmetrical expansion. LUNGS: Breath sounds with bilateral diffuse crackles CVS: Regular rate and rhythm, normal S1 and S2, no gallops, no murmurs, no rubs ABDOMEN: Soft, nontender. No hepatosplenomegaly, normal bowel sounds, no guarding or rigidity. EXTREMITIES: No clubbing, no edema, no cyanosis, 1+ pulses and upper and lower extremities. MUSCULOSKELETAL: Muscle strength and tone normal. SPINE: No scoliosis or deformity SKIN: No rashes CENTRAL NERVOUS SYSTEM: Unresponsive, no response to deep painful stimuli, absent corneal reflex, no gag reflex, no cough, negative Babinski Results - Laboratory Findings CBC and BMP: 07/02/20 01:44 07/02/20 03:42 ABG ABG pH 6.84 (7.35-7.45) L* 07/02/20 07:59 ABG pCO2 82 mmHg (35-45) H* 07/02/20 07:59 ABG pO2 50 mmHg (83-108) L* 07/02/20 07:59 ABG O2 Saturation 57.2 % (94-97) L 07/02/20 07:59 PT/INR, D-dimer PT 12.6 sec (9.0-12.0) H 07/02/20 01:44 INR 1.2 (<1.2) H 07/02/20 01:44 Abnormal lab findings: Abnormal Labs 07/02/20 07/02/20 07/02/20 01:29 01:44 01:44 Metamyelocytes # (Man) 0.07 H Myelocytes # (Manual) 0.07 H Nucleated RBCs 4 H PT 12.6 H INR 1.2 H ABG pH ABG pCO2 ABG pO2 ABG HCO3 ABG Total CO2 ABG O2 Saturation Potassium Chloride Carbon Dioxide BUN Creatinine Glucose POC Glucose (mg/dL) 189 H Plasma Lactic Acid Raymond Calcium Magnesium AST ALT Alkaline Phosphatase Troponin I Total Protein Albumin Urine Protein Urine Ketones Urine Blood Coronavirus (PCR) 07/02/20 07/02/20 07/02/20 01:44 01:44 01:44 Metamyelocytes # (Man) Myelocytes # (Manual) Nucleated RBCs PT INR ABG pH ABG pCO2 ABG pO2 ABG HCO3 ABG Total CO2 ABG O2 Saturation Potassium 6.5 H* Chloride 94 L Carbon Dioxide 10 L BUN 84 H Creatinine 4.53 H Glucose 218 H POC Glucose (mg/dL) Plasma Lactic Acid Raymond 18.8 H* Calcium Magnesium 2.9 H AST 6419 H ALT 2028 H Alkaline Phosphatase 129 H Troponin I 0.478 H* Total Protein 5.9 L Albumin Urine Protein Urine Ketones Urine Blood Coronavirus (PCR) 07/02/20 07/02/20 07/02/20 02:22 02:53 03:42 Metamyelocytes # (Man) Myelocytes # (Manual) Nucleated RBCs PT INR ABG pH 6.81 L* ABG pCO2 73 H* ABG pO2 46 L* ABG HCO3 11 L ABG Total CO2 14 L ABG O2 Saturation 46.3 L Potassium 5.7 H Chloride 109 H Carbon Dioxide 12 L BUN 68 H Creatinine 3.51 H Glucose 146 H POC Glucose (mg/dL) Plasma Lactic Acid Raymond Calcium 6.6 L Magnesium AST 6941 H ALT 2094 H Alkaline Phosphatase Troponin I Total Protein 3.8 L Albumin 2.0 L Urine Protein 1+ H Urine Ketones Trace H Urine Blood Trace H Coronavirus (PCR) 07/02/20 07/02/20 07/02/20 05:16 06:03 07:59 Metamyelocytes # (Man) Myelocytes # (Manual) Nucleated RBCs PT INR ABG pH 6.84 L* ABG pCO2 82 H* ABG pO2 50 L* ABG HCO3 14 L ABG Total CO2 17 L ABG O2 Saturation 57.2 L Potassium Chloride Carbon Dioxide BUN Creatinine Glucose POC Glucose (mg/dL) Plasma Lactic Acid Raymond 13.9 H* Calcium Magnesium AST ALT Alkaline Phosphatase Troponin I Total Protein Albumin Urine Protein Urine Ketones Urine Blood Coronavirus (PCR) Detected A - Diagnostic Findings Chest x-ray: report reviewed, image reviewed Additional studies: EKG reviewed Assessment and Plan Plan: Assessment: #1. Acute cardiopulmonary arrest at home, estimated down time is at least 1 hour her family estimates, and patient arrested 3 more times in the emergency department, was in PEA, received CPR, ACLS, no defibrillation, with return of spontaneous circulation #2. Severe anoxic brain injury, related to the above, he remains unresponsive to deep painful stimuli, with no brainstem reflexes #3. COVID-19 pneumonia with severe hypoxic respiratory failure, he shouldn't have been sick for 6 days, has a who has been COVID positive for 1 week #4. Cardiogenic shock, acute kidney injury, acute elevation of transaminases consistent with shock liver #5. Acute on chronic hypoxic respiratory failure related to COVID-19 pneumonia, patient has acute hypercapnic and metabolic acidosis related to cardiopulmonary arrest #6. Lactic acidosis due to cardiogenic shock #7. Advanced COPD on home oxygen #8. Diabetes mellitus type 2 #9. Hypertension #10. Hyperlipidemia #11. Current every day smoker 1 pack a day #12. History of thoracic aortic aneurysm per family #13. Poor medical compliance Plan: Vent adjustments have been made, currently assist-control with a rate of 32, tidal L[place] is down to 400, FiO2 remains 100% and PEEP was increased to 20% based on the latest blood gas, patient will receive 3 A of sodium bicarbonate, and will be started on bicarbonate infusion with 150 in acute of sodium bicarb at a rate of 150 ML per hour, continue with Decadron, and tinea vasopressors, and patient is currently on a combination of levo fed at 81 mics per minute, epinephrine infusion at 0.01 mics per kilo per minute, and vasopressin at 0.03 units per hour. Continue with GI and DVT prophylaxis, we'll consult neurology, will obtain echocardiogram, continue supportive treating the patient, patient's daughter and son are at the bedside, so spoke to his via face time on the daughter's phone, his condition is poor and critical, at this time there are signs of severe anoxic brain injury, and patient remains severely hemodynamically unstable, his prognosis is extremely poor, and after discussion with the family was decided to continue supportively treating the patient howeve r make the patient DO NOT RESUSCITATE in case of further deterioration and cardiac arrest. We will obtain cardiology consult will obtain brain CT the patient stabilizes, echocardiogram. We'll continue closely monitoring his clinical condition, prognosis is extremely poor and unlikely that he will survive this illness I performed a history & physical examination of the patient and discussed their management with my nurse practitioner, Sarah Pichardo. I reviewed the nurse practitioner's note and agree with the documented findings and plan of care. Lung sounds are positive for diminished. throughout the lung howard. The findings and the impression was discussed with the patient. I attest to the documentation by the nurse practitioner. Time with Patient: Greater than 30 <Edgard Martinez - Last Filed: 07/02/20 10:32> Physical Exam Vitals: Vital Signs Temp Pulse Resp BP Pulse Ox 07/02/20 09:40 85 20 100/61 80 L 07/02/20 09:20 85 20 86/60 80 L 07/02/20 09:00 84 20 79/65 78 L 07/02/20 07:40 84 16 95/61 61 L 04/16/21 07:35 84 16 97/65 61 L 07/02/20 06:00 77 16 91/55 91 L 07/02/20 05:53 80 16 109/67 91 L 07/02/20 05:40 65 16 50/29 94 L 07/02/20 05:15 54 L 16 51/26 07/02/20 05:02 79 16 95/52 98 07/02/20 04:47 75 16 72/30 07/02/20 04:33 73 16 67/37 99 07/02/20 04:16 75 16 73/42 99 07/02/20 03:45 70 16 64/37 98 07/02/20 03:30 97.8 F 70 16 67/26 99 07/02/20 03:15 68 16 66/34 98 07/02/20 03:00 69 16 54/31 99 07/02/20 02:45 74 16 61/27 98 07/02/20 02:30 80 16 100/55 98 Intake and Output 07/01/20 07/02/20 07/02/20 22:59 06:59 14:59 Intake Total 302.465 Output Total 650 Balance 302.465 -650 Intake: Intake, IV Titration 302.465 Amount EPINEPHrine 4 mg In 44.465 Dextrose 5% in Water 250 ml @ 0.01 MCG/KG/MIN 3. 429 mls/hr IV .Q24H ONE Rx#:[id number] Norepinephrine 8 mg In 258.000 Sodium Chloride 0.9% 250 ml @ 0.05 MCG/KG/MIN 8. 777 mls/hr IV .Q24H ONE Rx#:[id number] Output: Gastric Drainage 350 Urine 300 Other: Weight 90.718 kg Results - Laboratory Findings CBC and BMP: 07/02/20 01:44 07/02/20 03:42 ABG ABG pH 6.88 (7.35-7.45) L* 07/02/20 09:22 ABG pCO2 73 mmHg (35-45) H* 07/02/20 09:22 ABG pO2 67 mmHg (83-108) L 07/02/20 09:22 ABG O2 Saturation 77.8 % (94-97) L 07/02/20 09:22 PT/INR, D-dimer PT 12.6 sec (9.0-12.0) H 07/02/20 01:44 INR 1.2 (<1.2) H 07/02/20 01:44 Abnormal lab findings: Abnormal Labs 07/02/20 07/02/20 07/02/20 01:29 01:44 01:44 Metamyelocytes # (Man) 0.07 H Myelocytes # (Manual) 0.07 H Nucleated RBCs 4 H PT 12.6 H INR 1.2 H ABG pH ABG pCO2 ABG pO2 ABG HCO3 ABG Total CO2 ABG O2 Saturation Potassium Chloride Carbon Dioxide BUN Creatinine Glucose POC Glucose (mg/dL) 189 H Plasma Lactic Acid Raymond Calcium Magnesium AST ALT Alkaline Phosphatase Troponin I Total Protein Albumin Urine Protein Urine Ketones Urine Blood Coronavirus (PCR) 07/02/20 07/02/20 07/02/20 01:44 01:44 01:44 Metamyelocytes # (Man) Myelocytes # (Manual) Nucleated RBCs PT INR ABG pH ABG pCO2 ABG pO2 ABG HCO3 ABG Total CO2 ABG O2 Saturation Potassium 6.5 H* Chloride 94 L Carbon Dioxide 10 L BUN 84 H Creatinine 4.53 H Glucose 218 H POC Glucose (mg/dL) Plasma Lactic Acid Raymond 18.8 H* Calcium Magnesium 2.9 H AST 6419 H ALT 2028 H Alkaline Phosphatase 129 H Troponin I 0.478 H* Total Protein 5.9 L Albumin Urine Protein Urine Ketones Urine Blood Coronavirus (PCR) 07/02/20 07/02/20 07/02/20 02:22 02:53 03:42 Metamyelocytes # (Man) Myelocytes # (Manual) Nucleated RBCs PT INR ABG pH 6.81 L* ABG pCO2 73 H* ABG pO2 46 L* ABG HCO3 11 L ABG Total CO2 14 L ABG O2 Saturation 46.3 L Potassium 5.7 H Chloride 109 H Carbon Dioxide 12 L BUN 68 H Creatinine 3.51 H Glucose 146 H POC Glucose (mg/dL) Plasma Lactic Acid Raymond Calcium 6.6 L Magnesium AST 6941 H ALT 2094 H Alkaline Phosphatase Troponin I Total Protein 3.8 L Albumin 2.0 L Urine Protein 1+ H Urine Ketones Trace H Urine Blood Trace H Coronavirus (PCR) 07/02/20 07/02/20 07/02/20 05:16 06:03 07:59 Metamyelocytes # (Man) Myelocytes # (Manual) Nucleated RBCs PT INR ABG pH 6.84 L* ABG pCO2 82 H* ABG pO2 50 L* ABG HCO3 14 L ABG Total CO2 17 L ABG O2 Saturation 57.2 L Potassium Chloride Carbon Dioxide BUN Creatinine Glucose POC Glucose (mg/dL) Plasma Lactic Acid Raymond 13.9 H* Calcium Magnesium AST ALT Alkaline Phosphatase Troponin I Total Protein Albumin Urine Protein Urine Ketones Urine Blood Coronavirus (PCR) Detected A 07/02/20 09:22 Metamyelocytes # (Man) Myelocytes # (Manual) Nucleated RBCs PT INR ABG pH 6.88 L* ABG pCO2 73 H* ABG pO2 67 L ABG HCO3 14 L ABG Total CO2 16 L ABG O2 Saturation 77.8 L Potassium Chloride Carbon Dioxide BUN Creatinine Glucose POC Glucose (mg/dL) Plasma Lactic Acid Raymond Calcium Magnesium AST ALT Alkaline Phosphatase Troponin I Total Protein Albumin Urine Protein Urine Ketones Urine Blood Coronavirus (PCR) Assessment and Plan Assessment: There is a joint evaluation that was done with the nurse practitioner. The patient was seen in the emergency department and the patient is currently in transit to the ICU. The patient was severely acidotic. This was a combination of metabolic and respiratory acidosis post prolonged cardiopulmonary arrest. The patient was also in shock state requiring high dose of Pressors combination of norepinephrine and epinephrine. The patient was intubated on a mechanical ventilator. The patient was completely unresponsive. No brain stem reflexes were elicited. Obviously, the patient carries a very poor prognosis. Chest x- ray is consistent with COVID-19 related pneumonia and the patient currently has multisystem organ failure. The plan is to transfer this patient to the intensive care unit. It switch him to a DNR/DNI status that I talked to his . Continue pressors. Continue vent support. This is a ventilator changes were done. Bicarb was given. Pressors will be continued. Initiated treatment for COVID-19. CAT scan of the brain was more stable.obtain inflammatory markers. Obtain echocardiogram. Obtain an neurology evaluation. We'll continue to follow. Poor prognosis.
[2020-07-02] MEDS ORDERED: SODIUM BICARB 8.4% 50 ML SYR (1 MEQ/ML) IV STA (09:46)
--- NOTE | 2020-07-02 10:57 | CT ---
EXAMINATION TYPE: CT brain wo con DATE OF EXAM: 07/02/2020 COMPARISON: None INDICATION: cardiac arrest, covid DLP: 1099.4 mGycm, Automated exposure control for dose reduction was used. CONTRAST: None CT of the brain is performed utilizing 3 mm thick sections through the posterior fossa and 3 mm thick sections through the remaining calvarium. Study is performed within 24 hours of arrival to the hosp [facility]. There is diffuse increased signal through the tentorium and suprasellar cistern compatible subarachno id hemorrhage. There is loss of de [place] vega-white matter differentiation. There is a subtle suggestion of a rim of density. Small bilateral older subdural hematomas may be present. Report was called to kalyan Siegel ER nurse by Dr. Valentine by telephone at 1053 hours 07/02/2020. No mass lesion is evident. There is diffuse loss of the brain differentiation. This can be related to anoxic injury. There is effacement of all the sulci and compression of the ventricles. No midline shift is evident f ourth ventricle is poorly visualized. Temporal horn dilatation is not evident. Quadrigeminal plate an d ambient cistern are not visualized. Mucosal thickening is to the nasal passage. The patient is intubated and has a nasogastric tube which can cause this appearance. Small air-fluid levels within the sphenoid sinus. The frontal sinuses are clear. There is opacification through left mastoid air cells. IMPRESSIONS: 1. Diffuse increased density in the extra-axial space suspicious for subarachnoid hemorrhage. 2. Loss of de [place] vega-white matter differentiation. Anoxic injury should be considered. This is both suprat entorial and infratentorial. 3. Subtle suggestion of minimal subdural collections which could be older and not hyperdense to match the acute subarachnoid hemorrhage.
[2020-07-02] MEDS: HEPARIN SODIUM,PORCINE/PF 5,000 UNIT/0.5 ML SYRINGE SQ SCH ×2 (11:02→11:32)
[2020-07-02 11:41] LABS: C Reactive Protein 219.7 mg/L (<10.0)
[2020-07-02 11:45] VITALS: BP 99/72
--- NOTE | 2020-07-02 12:00 | ECHOF ---
Referral Reason:cardiac arrest MEASUREMENTS -------- HEIGHT: 177.8 cm WEIGHT: 90.7 kg BP: RVIDd: 5.6 cm (< 3.3) IVSd: 1.1 cm (0.6 - 1.1) LVIDd: 3.1 cm (3.9 - 5.3) LVPWd: 1.3 cm (0.6 - 1.1) IVSs: 1.3 cm LVIDs: 2.0 cm LVPWs: 1.8 cm LA Diam: 3.8 cm (2.7 - 3.8) Ao Diam: 2.6 cm (2.0 - 3.7) LA Diam: 3.4 cm (2.7 - 3.8) MV EXCURSION: 13.536 mm (> 18.000) MV EF SLOPE: 45 mm/s (70 - 150) EPSS: 0.8 cm MV E Shadi: 0.35 m/s MV DecT: 214 ms MV A Shadi: 0.32 m/s MV E/A Ratio: 1.10 RAP: 5.00 mmHg RVSP: 21.64 mmHg FINDINGS -------- This was a technically difficult study with suboptimal views. Pt. on a vent. The left ventricular size is normal. Left ventricular wall thickness is normal. Overall left vent ricular systolic function is low-normal with, an EF between 50 - 55 %. The right ventricle is severely enlarged. The left atrial size is normal. The right atrium was not well visualized. Lumason used The aortic valve was not well visualized. The mitral valve is normal. There is trace mitral regurgitation. The tricuspid valve appears structurally normal. Trace tricuspid regurgitation present. Right pippa tricular systolic pressure is normal at < 35 mmHg. There is no pulmonic regurgitation present. The aortic root size is normal. IVC Not well visulized. There is a small, generalized pericardial effusion present. CONCLUSIONS -------- 1. The left ventricular size is normal. 2. Left ventricular wall thickness is normal. 3. Overall left ventricular systolic function is low-normal with, an EF between 50 - 55 %. 4. The right ventricle is severely enlarged. 5. There is trace mitral regurgitation. 6. Trace tricuspid regurgitation present. 7. There is a small, generalized pericardial effusion present. SYSTEMATIC THEOLOGY PROFESSOR: Saadia Duque RDCS
[2020-07-02 12:03] LABS: LDH >21500 U/L (313-618)
--- NOTE | 2020-07-02 12:11 | P.CRDCN ---
History of Present Illness History of present illness: HISTORY OF PRESENTING ILLNESS This is a pleasant 59-year-old male past medical history significant for COPD, diabetes mellitus, hypertension, dyslipidema, thoracic aortic aneurysm, home oxygen use and chronic nicotine dependence. He is seen and evaluated in the ER on mechanical ventilator. His daughter is at the bedside giving history. Apparently his had been diagnosed with COVID 19 and was managing at home. On Sunday of last week he started having some mild symptoms. Mostly he just was tired and she said all he did was sleep. He wasn't eating, drinking or taking any of his medications. Late last night he asked his for some water. When she went in the room to give it to him he was unresponsive. EMS was called. On arrival he was pulseless. CPR and intubation were performed. He is currently maintained on mechanical ventilation. He is not responding to verbal or painful stimuli. EKG reveals sinus tachycardia heart rate of 118 with right bundle branch block and ST depression in the precordial leads. Chest x- ray reveals diffuse reticular opacity is consistent with interstitial edema, patchy consolidation in the right base, endotracheal tube and NG tube in place. CT of the brain performed reveals diffuse increased density in the extra-axial space suspicious for subarachnoid hemorrhage, loss of de [place] ve[place] white matter if her agitation, anoxic injury considered, subtle suggestion of minimal subdural collections which could be old. Possibly related to acute subarachnoid hemorrhage. Laboratory data reviewed, pH 6.88, pCO2 73, pO2 67, C-reactive protein 219, lactic acid 12.7, d-dimer greater than 34, sodium 140, potassium 5.7, creatinine 3.5, AST 6941, ALT 2094, WBC 6.9, hemoglobin 13.7, platelets 265, proBNP, troponin 0.478 and 1.4. Daily medications include atorvastatin 20 mg daily, Lopressor 25 mg daily and Lopid 600 mg twice a day. REVIEW OF SYSTEMS At the time of my exam: Unable to obtain accurate review of systems secondary to pt being unresponsive. PHYSICAL EXAMINATION Blood pressure 99/72 heart rate 94 afebrile and maintained on mechanical ventilation. CONSTITUTIONAL: Unresponsive on mechanical ventilation HEENT: Head is normocephalic. Barely reactive pupils bilaterally. Sclerae anicteric. Mucous membranes of the mouth are moist. No JVD. CHEST EXAMINATION: Scattered rhonchi and expiratory wheeze anteriorly. HEART EXAMINATION: Regular rate and rhythm. S1, S2 heard. No murmurs, gallops or rub. ABDOMEN: Soft. Positive bowel sounds. EXTREMITIES: No lower extremity edema, lower extremities cool to touch. NEUROLOGIC EXAMINATION: Patient is unresponsive. ASSESSMENT Cardiac arrest, PEA s/p CPR with ROSC COVID 19 Subarachnoid hemorrhage Anoxic brain injury Transaminities Acute renal failure Lactic acidosis Hypertension Dyslipidemia Thoracic aortc aneurysm Chronic nicotine dependence COPD PLAN Echocardiogram has been obtained and will be reviewed. Prognosis is extremely poor. He has been made a NO CODE with ongoing supportive care requested from the family. Hold aspirin due to subarachnoid hemorrhage. Continue supportive care. Updated family on patients current condition. Thank you kindly for this consultation. Nurse Practitioner note has been reviewed, I agree with a documented findings and plan of care. Patient was seen and examined. Past Medical History Past Medical History: Asthma, COPD, Diabetes Mellitus, GERD/Reflux, Hyperlipidemia, Osteoarthritis (OA), Prostate Disorder Additional Past Medical History / Comment(s): enl. prostate History of Any Multi-Drug Resistant Organisms: None Reported Past Surgical History: Hernia Repair, Orthopedic Surgery Additional Past Surgical History / Comment(s): shoulders, toes,cysts on wrists, colonoscopy Past Anesthesia/Blood Transfusion Reactions: No Reported Reaction Past Psychological History: No Psychological Hx Reported Smoking Status: Current every day smoker Past Alcohol Use History: Occasional Past Drug Use History: None Reported - Past Family History Mother Family Medical History: Cancer Medications and Allergies Home Medications Medication Instructions Recorded Confirmed Type Ibuprofen [Motrin] 800 mg PO TID PRN 08/10/15 07/02/20 History Multivitamin [Men's Multi-Vitamin] 1 tab PO DAILY 08/10/15 07/02/20 History Niacin 500 mg PO DAILY 08/10/15 07/02/20 History gemfibroziL [Lopid] 600 mg PO AC-BID 08/10/15 07/02/20 History Albuterol Sulfate [Proair Hfa] 2 puff INHALATION RT-QID PRN 07/02/20 07/02/20 History Atorvastatin [Lipitor] 20 mg PO HS 07/02/20 07/02/20 History Calcium Carbonate/Vitamin D3 1 tab PO DAILY 07/02/20 07/02/20 History [Calcium 600 mg-Vit D3 10 mcg (400 Unit)] Fluticasone/Salmeterol [Advair 1 puff INHALATION RT-BID 07/02/20 07/02/20 History 250-50 Diskus] Gabapentin [Neurontin] 100 mg PO BID 07/02/20 07/02/20 History Hydrocodone/Acetaminophen [[place] 1 tab PO TID PRN 07/02/20 07/02/20 History 7.5-325] Ipratropium-Albuterol Nebulize 3 ml INHALATION RT-QID 07/02/20 07/02/20 History [Duoneb 0.5 mg-3 mg/3 ml Soln] Meclizine [Antivert] 25 mg PO TID PRN 07/02/20 07/02/20 History Metoprolol Tartrate [Lopressor] 25 mg PO DAILY 07/02/20 07/02/20 History Omeprazole [PriLOSEC] 40 mg PO DAILY 07/02/20 07/02/20 History Pioglitazone [Actos] 15 mg PO DAILY 07/02/20 07/02/20 History Theophylline 24 Hour [Brent-24] 400 mg PO DAILY 07/02/20 07/02/20 History predniSONE 10 mg PO DAILY 07/02/20 07/02/20 History Allergies Allergy/AdvReac Type Severity Reaction Status Date / Time aspirin Allergy Unknown Verified 07/02/20 08:25 Penicillins Allergy Rash/Hives Verified 07/02/20 08:25 Physical Exam Vitals: Vital Signs Temp Pulse Resp BP Pulse Ox 07/02/20 11:40 94 20 99/72 86 L 07/02/20 11:20 86 20 97/57 81 L 07/02/20 11:00 84 20 100/60 80 L 07/02/20 10:20 85 20 89/50 79 L 07/02/20 10:00 85 20 94/59 80 L 07/02/20 09:40 85 20 100/61 80 L 07/02/20 09:20 85 20 86/60 80 L 07/02/20 09:00 84 20 79/65 78 L 07/02/20 07:40 84 16 95/61 61 L 07/02/20 07:35 84 16 97/65 61 L 07/02/20 06:00 77 16 91/55 91 L 07/02/20 05:53 80 16 109/67 91 L 07/02/20 05:40 65 16 50/29 94 L 07/02/20 05:15 54 L 16 51/26 07/02/20 05:02 79 16 95/52 98 07/02/20 04:47 75 16 72/30 07/02/20 04:33 73 16 67/37 99 07/02/20 04:16 75 16 73/42 99 07/02/20 03:45 70 16 64/37 98 07/02/20 03:30 97.8 F 70 16 67/26 99 07/02/20 03:15 68 16 66/34 98 07/02/20 03:00 69 16 54/31 99 07/02/20 02:45 74 16 61/27 98 07/02/20 02:30 80 16 100/55 98 Intake and Output 07/01/20 07/02/20 07/02/20 22:59 06:59 14:59 Intake Total 302.465 Output Total 650 Balance 302.465 -650 Intake: Intake, IV Titration 302.465 Amount EPINEPHrine 4 mg In 44.465 Dextrose 5% in Water 250 ml @ 0.01 MCG/KG/MIN 3. 429 mls/hr IV .Q24H ONE Rx#:[id number] Norepinephrine 8 mg In 258.000 Sodium Chloride 0.9% 250 ml @ 0.05 MCG/KG/MIN 8. 777 mls/hr IV .Q24H ONE Rx#:[id number] Output: Gastric Drainage 350 Urine 300 Other: Weight 90.718 kg Results 07/02/20 01:44 07/02/20 03:42 Cardiac Enzymes 07/02/20 07/02/20 07/02/20 Range/Units 01:44 01:44 03:42 AST 6419 H 6941 H (17-59) U/L Troponin I 0.478 H* (0.000-0.034) ng/mL 07/02/20 Range/Units 10:22 AST (17-59) U/L Troponin I 1.450 H* (0.000-0.034) ng/mL Coagulation 07/02/20 Range/Units 01:44 PT 12.6 H (9.0-12.0) sec APTT 29.2 (22.0-30.0) sec CBC 07/02/20 Range/Units 01:44 WBC 6.9 (3.8-10.6) k/uL RBC 4.48 (4.30-5.90) m/uL Hgb 13.7 (13.0-17.5) gm/dL Hct 42.3 (39.0-53.0) % Plt Count 265 (150-450) k/uL Comprehensive Metabolic Panel 07/02/20 07/02/20 Range/Units 01:44 03:42 Sodium 140 140 (137-145) mmol/L Potassium 6.5 H* 5.7 H (3.5-5.1) mmol/L Chloride 94 L 109 H (98-107) mmol/L Carbon Dioxide 10 L 12 L (22-30) mmol/L BUN 84 H 68 H (9-20) mg/dL Creatinine 4.53 H 3.51 H (0.66-1.25) mg/dL Glucose 218 H 146 H (74-99) mg/dL Calcium 9.9 6.6 L (8.4-10.2) mg/dL AST 6419 H 6941 H (17-59) U/L ALT 2028 H 2094 H (4-49) U/L Alkaline Phosphatase 129 H 101 (38-126) U/L Total Protein 5.9 L 3.8 L (6.3-8.2) g/dL Albumin 3.5 2.0 L (3.5-5.0) g/dL Current Medications Generic Name Dose Route Start Last Admin Trade Name Freq PRN Reason Stop Dose Admin Acetaminophen 650 mg 07/02/20 04:55 Acetaminophen Suppository 650 Mg Supp RECTAL Q4HR PRN Fever And/ Or Mild Pain Dexamethasone Sodium Phosphate 6 mg 07/02/20 09:00 07/02/20 11:02 Dexamethasone Sod Phosphate 10 Mg/Ml 1 Ml Vial IV 6 mg DAILY KEVON Administration Famotidine 20 mg 07/02/20 09:00 07/02/20 11:02 Famotidine 20 Mg/2 Ml Vial IV 20 mg Q12HR KEVON Administration Heparin Sodium (Porcine) 5,000 unit 07/02/20 08:00 07/02/20 11:32 Heparin Sodium,Porcine/Pf 5,000 Unit/0.5 Ml Syringe SQ Not Given Q8HR KEVON Sodium Bicarbonate 150 ml/ 1,150 mls @ 125 mls/hr 07/02/20 03:30 07/02/20 03:18 Dextrose/Water IV 125 mls/hr .Q9H12M KEVON Administration Epinephrine HCl 4 mg/ Dextrose 252 mls @ 3.429 mls/hr 07/02/20 03:15 07/02/20 05:48 /Water IV 07/03/20 03:14 0.01 mcg/kg/min .Q24H ONE 3.429 mls/hr Titration Protocol 0.01 MCG/KG/MIN Norepinephrine Bitartrate 32 250 mls @ 2.126 mls/hr 07/02/20 05:00 07/02/20 05:25 mg/ Sodium Chloride IV 0.08 mcg/kg/min .Q24H KEVON 3.402 mls/hr Administration Protocol 0.05 MCG/KG/MIN Vasopressin 60 unit/ Sodium 153 mls @ 4.59 mls/hr 07/02/20 05:15 07/02/20 05:30 Chloride IV 4.59 mls/hr .Q24H KEVON Administration 0.03 UNITS/MIN Multi-Ingred Cream/Lotion/Oil/Oint 1 applic 07/02/20 08:00 07/02/20 05:52 Artificial Tears Ointment 3.5 Gm Tube BOTH EYES 1 applic Q4HR PRN Administration Dry Eye(s) Naloxone HCl 0.2 mg 07/02/20 04:55 Naloxone 0.4 Mg/Ml 1 Ml Vial IV Q2M PRN Opioid Reversal Intake and Output 07/01/20 07/02/20 07/02/20 22:59 06:59 14:59 Intake Total 302.465 Output Total 650 Balance 302.465 -650 Intake: Intake, IV Titration 302.465 Amount EPINEPHrine 4 mg In 44.465 Dextrose 5% in Water 250 ml @ 0.01 MCG/KG/MIN 3. 429 mls/hr IV .Q24H ONE Rx#:[id number] Norepinephrine 8 mg In 258.000 Sodium Chloride 0.9% 250 ml @ 0.05 MCG/KG/MIN 8. 777 mls/hr IV .Q24H ONE Rx#:[id number] Output: Gastric Drainage 350 Urine 300 Other: Weight 90.718 kg 07/02/20 01:44 07/02/20 03:42
[2020-07-02] MEDS ORDERED: MORPHINE SULFATE 2 MG/ML SYRINGE IV PRN (12:14)
--- NOTE | 2020-07-02 12:27 | P.CNNES ---
History of Present Illness Consult date: 07/02/20 Requesting physician: Edgard Martinez Reason for Consult: anoxic encephalopathy from cardiac arrest History of Present Illness: This is a 59-year-old gentleman with medical history of COPD on home oxygen, diabetes mellitus, hypertension, hyperlipidemia, thoracic aortic aneurysm, tobacco use and medical noncompliance that was presented to the emergency department on 07/02/2020 after becoming unresponsive at home. History was obtained from medical records because of the patient condition. Per ICU attending's note it is mentioned that per family the patient has not been feeling well for the last 1 week and hasn't been taking his medication since last Sunday at. The patient the has been unresponsive at home for about 1 hour. EMS arrived to the scene and there is no vitals and he was in PEA. CPR was performed and he received multiple chest compression as well as multiple rounds of epinephrine ROSC. Upon arrival to the emergency department the patient had the arrested 3 more times and was in PEA with no shockable rhythm, and received CPR and epinephrine. Patient is intubated on mechanical ventilator. Patient workup in the hospital consisted of: Initial vitals his blood pressure of 100/55 with a heart rate of 80 history of 60 then later the blood pressure was in the systolic 50s to 60s diastolic 20s to 30s with a heart rate and that 60s to 70s. CT of the head is reported as diffuse increased intensity in the extra-axial space suspicious for subarachnoid hemorrhage. Loss of de [place] ve[place]-white matter d ifferentiation. Anoxic injury should be considered. This is both supratentorial and infratentorial. Subtle suggestion of minimal subdural collection which could be older and not hydrocephalus to match acute subarachnoid hemorrhage. Patient initial potassium is 6.5 on presentation which is elevated (slight hemolysis). His x-rays reported as diffuse reticular opacities consistent with interstitial pulmonary edema. Patchy consolidation in the right base which may be due to edema, aspiration or infection. Presentation the patient's white blood cell as 6.9 which is what normal. Sodium is 140 which is normal. BUN is 84 and a creatinine is 4.53 which are elevated at. The POC glucose on presentation is 189. Plasma lactic acid is 18.8. Magnesium is 2. times elevated AST is 6419 and the ALTs 2028. Troponin 0.478 Initial ABG is pH of 6.8 which is acidotic, CO2 of 73, pO2 of 46, bicarb of 11. COVID 19 PCR is positive. Per the patient's nurse, the patient is not on any sedation and ICU attending briefly took the patient off the ventilator and he was not breathing. Review of Systems Review of system: The 12 point system was reviewed and apparent positive and negative per HPI. Past Medical History Past Medical History: Asthma, COPD, Diabetes Mellitus, GERD/Reflux, Hyperlipidemia, Osteoarthritis (OA), Prostate Disorder Additional Past Medical History / Comment(s): enl. prostate History of Any Multi-Drug Resistant Organisms: None Reported Past Surgical History: Hernia Repair, Orthopedic Surgery Additional Past Surgical History / Comment(s): shoulders, toes,cysts on wrists, colonoscopy Past Anesthesia/Blood Transfusion Reactions: No Reported Reaction Past Psychological History: No Psychological Hx Reported Smoking Status: Current every day smoker Past Alcohol Use History: Occasional Past Drug Use History: None Reported - Past Family History Mother Family Medical History: Cancer Medications and Allergies Home Medications Medication Instructions Recorded Confirmed Type Ibuprofen [Motrin] 800 mg PO TID PRN 08/10/15 07/02/20 History Multivitamin [Men's Multi-Vitamin] 1 tab PO DAILY 08/10/15 07/02/20 History Niacin 500 mg PO DAILY 08/10/15 07/02/20 History gemfibroziL [Lopid] 600 mg PO AC-BID 08/10/15 07/02/20 History Albuterol Sulfate [Proair Hfa] 2 puff INHALATION RT-QID PRN 07/02/20 07/02/20 History Atorvastatin [Lipitor] 20 mg PO HS 07/02/20 07/02/20 History Calcium Carbonate/Vitamin D3 1 tab PO DAILY 07/02/20 07/02/20 History [Calcium 600 mg-Vit D3 10 mcg (400 Unit)] Fluticasone/Salmeterol [Advair 1 puff INHALATION RT-BID 07/02/20 07/02/20 History 250-50 Diskus] Gabapentin [Neurontin] 100 mg PO BID 07/02/20 07/02/20 History Hydrocodone/Acetaminophen [[place] 1 tab PO TID PRN 07/02/20 07/02/20 History 7.5-325] Ipratropium-Albuterol Nebulize 3 ml INHALATION RT-QID 07/02/20 07/02/20 History [Duoneb 0.5 mg-3 mg/3 ml Soln] Meclizine [Antivert] 25 mg PO TID PRN 07/02/20 07/02/20 History Metoprolol Tartrate [Lopressor] 25 mg PO DAILY 07/02/20 07/02/20 History Omeprazole [PriLOSEC] 40 mg PO DAILY 07/02/20 07/02/20 History Pioglitazone [Actos] 15 mg PO DAILY 07/02/20 07/02/20 History Theophylline 24 Hour [Brent-24] 400 mg PO DAILY 07/02/20 07/02/20 History predniSONE 10 mg PO DAILY 07/02/20 07/02/20 History Allergies Allergy/AdvReac Type Severity Reaction Status Date / Time aspirin Allergy Unknown Verified 07/02/20 08:25 Penicillins Allergy Rash/Hives Verified 07/02/20 08:25 Physical Examination - Vital Signs Vital Signs: Vital Signs Temp Pulse Resp BP Pulse Ox 07/02/20 09:40 85 20 100/61 80 L 07/02/20 09:20 85 20 86/60 80 L 07/02/20 09:00 84 20 79/65 78 L 07/02/20 07:40 84 16 95/61 61 L 07/02/20 07:35 84 16 97/65 61 L 07/02/20 06:00 77 16 91/55 91 L 07/02/20 05:53 80 16 109/67 91 L 07/02/20 05:40 65 16 50/29 94 L 07/02/20 05:15 54 L 16 51/26 07/02/20 05:02 79 16 95/52 98 07/02/20 04:47 75 16 72/30 07/02/20 04:33 73 16 67/37 99 07/02/20 04:16 75 16 73/42 99 07/02/20 03:45 70 16 64/37 98 07/02/20 03:30 97.8 F 70 16 67/26 99 07/02/20 03:15 68 16 66/34 98 07/02/20 03:00 69 16 54/31 99 07/02/20 02:45 74 16 61/27 98 07/02/20 02:30 80 16 100/55 98 Intake and Output 07/01/20 07/02/20 07/02/20 22:59 06:59 14:59 Intake Total 302.465 Output Total 650 Balance 302.465 -650 Intake: Intake, IV Titration 302.465 Amount EPINEPHrine 4 mg In 44.465 Dextrose 5% in Water 250 ml @ 0.01 MCG/KG/MIN 3. 429 mls/hr IV .Q24H ONE Rx#:[id number] Norepinephrine 8 mg In 258.000 Sodium Chloride 0.9% 250 ml @ 0.05 MCG/KG/MIN 8. 777 mls/hr IV .Q24H ONE Rx#:[id number] Output: Gastric Drainage 350 Urine 300 Other: Weight 90.718 kg GENERAL: The patient is lying in bed and does not seem in acute distress acute distress. HENT: Supple neck. No nuchal rigidity. CHEST: The heart rate is regular rate rhythm. No murmurs to auscultation. P atient is on IV epinephrine drip LUNG: Clear to auscultation bilaterally no wheezing noted throughout. Not labored breathing. Intubated on ventilator. A/C set at 32 and is breathing at 32. ABDOMEN/GI: No abdominal distentionNo tenderness to palpation throughout. NEUROLOGICAL: Limited because of the patient condition. No on IV sedation (per the patient nurse not given any sedation). Higher mental function: GCS 3 (E, VT1, M1). Patient is comatose and not responsive and not following commands. Cranial nerves: Pupils are 4mm bilaterally and non-reactive to light. Negative corneal reflex bilaterally. Negative occulocephalic reflex. No facial weakness. Negative gag reflexe. Breathing at the vent (A/C at 32 and breathing at that level). Motor: Strength: No moving any of the extremities to painful stimuli. No spontaneous breathing noted. Normal bulk. Cerebellum: Could not assess. Sensation: Could not assess. But to painful stimuli not moving any of the extremities. Reflexes (right/left): 1+. Plantars are mute bilaterally. Results - Laboratory Findings CBC and BMP: 07/02/20 01:44 07/02/20 03:42 Abnormal Lab Findings: Abnormal Labs 07/02/20 07/02/20 07/02/20 01:29 01:44 01:44 Metamyelocytes # (Man) 0.07 H Myelocytes # (Manual) 0.07 H Nucleated RBCs 4 H PT 12.6 H INR 1.2 H ABG pH ABG pCO2 ABG pO2 ABG HCO3 ABG Total CO2 ABG O2 Saturation Potassium Chloride Carbon Dioxide BUN Creatinine Glucose POC Glucose (mg/dL) 189 H Plasma Lactic Acid Raymond Calcium Magnesium AST ALT Alkaline Phosphatase Troponin I Total Protein Albumin Urine Protein Urine Ketones Urine Blood Coronavirus (PCR) 07/02/20 07/02/20 07/02/20 01:44 01:44 01:44 Metamyelocytes # (Man) Myelocytes # (Manual) Nucleated RBCs PT INR ABG pH ABG pCO2 ABG pO2 ABG HCO3 ABG Total CO2 ABG O2 Saturation Potassium 6.5 H* Chloride 94 L Carbon Dioxide 10 L BUN 84 H Creatinine 4.53 H Glucose 218 H POC Glucose (mg/dL) Plasma Lactic Acid Raymond 18.8 H* Calcium Magnesium 2.9 H AST 6419 H ALT 2028 H Alkaline Phosphatase 129 H Troponin I 0.478 H* Total Protein 5.9 L Albumin Urine Protein Urine Ketones Urine Blood Coronavirus (PCR) 07/02/20 07/02/20 07/02/20 02:22 02:53 03:42 Metamyelocytes # (Man) Myelocytes # (Manual) Nucleated RBCs PT INR ABG pH 6.81 L* ABG pCO2 73 H* ABG pO2 46 L* ABG HCO3 11 L ABG Total CO2 14 L ABG O2 Saturation 46.3 L Potassium 5.7 H Chloride 109 H Carbon Dioxide 12 L BUN 68 H Creatinine 3.51 H Glucose 146 H POC Glucose (mg/dL) Plasma Lactic Acid Raymond Calcium 6.6 L Magnesium AST 6941 H ALT 2094 H Alkaline Phosphatase Troponin I Total Protein 3.8 L Albumin 2.0 L Urine Protein 1+ H Urine Ketones Trace H Urine Blood Trace H Coronavirus (PCR) 07/02/20 07/02/20 07/02/20 05:16 06:03 07:59 Metamyelocytes # (Man) Myelocytes # (Manual) Nucleated RBCs PT INR ABG pH 6.84 L* ABG pCO2 82 H* ABG pO2 50 L* ABG HCO3 14 L ABG Total CO2 17 L ABG O2 Saturation 57.2 L Potassium Chloride Carbon Dioxide BUN Creatinine Glucose POC Glucose (mg/dL) Plasma Lactic Acid Raymond 13.9 H* Calcium Magnesium AST ALT Alkaline Phosphatase Troponin I Total Protein Albumin Urine Protein Urine Ketones Urine Blood Coronavirus (PCR) Detected A 04/16/21 09:22 Metamyelocytes # (Man) Myelocytes # (Manual) Nucleated RBCs PT INR ABG pH 6.88 L* ABG pCO2 73 H* ABG pO2 67 L ABG HCO3 14 L ABG Total CO2 16 L ABG O2 Saturation 77.8 L Potassium Chloride Carbon Dioxide BUN Creatinine Glucose POC Glucose (mg/dL) Plasma Lactic Acid Raymond Calcium Magnesium AST ALT Alkaline Phosphatase Troponin I Total Protein Albumin Urine Protein Urine Ketones Urine Blood Coronavirus (PCR) Assessment and Plan Assessment: Severe Anoxic brain injury due to prolonged cardiac arrest (CT shows severe loss of de [place]-white matter differentation) Diffuse increased intensity in the extra-axial space suspicious for subarachnoid hemorrhage Acute COVID-19 pneumonia Hepatic shock due to a prolonged cardiac arrest Acute kidney insufficiency due to prolonged cardiac arrest Metabolic and respiratory acidosis due to prolonged cardiopulmonary arrest Metabolic derangement due to the cardiac arrest (hyperkalemia) Also component of the encephalopathy due all above. COPD on home oxygen Diabetes mellitus Hypertension Hyperlipidemia Medical noncompliance Plan: An EEG is ordered by the ICU team is pending. I do agree with the ICU team and sadly the patient's prognosis is a severely poor. I do not see any brainstem reflex on my examination but the ventilator setting A/C was set at high rate but even though I would expect if I down take him off the ventilator he will not breathing on his own because of the severity to his brain from prolonged cardiac arrest. All this was relayed to the family (mother via her daughter video phone) and daughter who is at bedside. Imaging was shown to them. They wanted to make the patient comfort care. The plan is discussed with the patient's nurse. Thank you for the consultation. Vincent Johnson MD Neuro-Hospitalist Time with Patient: Greater than 30
[2020-07-02 12:58] VITALS: PULSE 0; RESP 0
--- NOTE | 2020-07-02 18:56 | P.HPIM ---
History of Present Illness H&P Date: 07/02/20 Chief Complaint: Unresponsive History of presenting complaint: This is a 59-year-old patient was brought by the ambulance to the ER was become unresponsive at home. Patient is intubated. Patient's had been become sick and was diagnosed with COVID a few days ago. About 2 or 3 days ago the patient started showing symptoms as well even though is not tested for cord. Patient had worsening symptoms but has resisted going to the hospital. At the scene patient had no vital signs in the started ACLS intubated the patient. Patient had received a total of 5 mg of epinephrine. On arrival the patient does have ROSC in the ER. Patient is otherwise chronic stable medical conditions included COPD, diabetes, GERD, hyperlipidemia, prostatitis, BPH. Patient is a nonsmoker. Upon arrival to the ER she had an estimate 3 more times and was in PA. And no shockable rhythm. Received 8 CPR, epinephrine. Patient the ventilator. Patient was seen by the wood stock blank handler earlier today and found with anoxic brain injury. With no spontaneous respirations no gag no corneal reflexes. Patient did test positive for COVID 19. Admitting review of systems: Unable to obtain patient intubated Past medical history to include: COPD, diabetes, GERD, hyperlipidemia, osteoarthritis, BPH Social history: Smoker. Alcohol occasionally. Physical examination: VITAL SIGNS: Afebrile, 85, 20, 100/61, 80% on the ventilator on 100% GENERAL: BMI 28.7, laying in bed, intubated. EYES: Pupils equal. Conjunctiva normal. HEENT: External appearance of nose and ears normal, endotracheal tube. NECK: JVD unable to assess; masses not palpable. HEART: First and second heart sounds are normal; no edema. LUNGS: Respiratory rate increased; decreased breath sounds. ABDOMEN: Soft, nontender, liver spleen not palpable, no masses palpable. PSYCH: Patient's unresponsivel. NEUROLOGICAL: Pupils are equal and dilated, no corneal reflex no response to pain, no gag reflex. LYMPHATICS: No lymph nodes palpable in the axilla and neck INVESTIGATIONS, reviewed in the clinical context: WBC 6.9 hemoglobin 13.7 platelets 265 potassium 6.5 bicarbonate 10 bun 84 creatinine 4.53 lactic acid 18.8 AST 6419 ALT 2028 troponin I 0.478 ABG: PH 6.8 pCO2 73 pO2 46 EKG tracing personally reviewed by me-right bundle branch block pattern, sinus rhythm Chest x-ray film personally reviewed by me-bilateral scattered infiltrates Computed tomography scan of the brain: Diffuse increased density in the extra- axial space suspicious for subarachnoid hemorrhage loss of de la vega-white matter differentiation Assessment and plan: -Acute cardiopulmonary arrest at home., At the approximate downtime and a 1 hour. Patient had 3 more episodes of arrest in the ER and was in PA. Did have return of spontaneous circulation -Acute severe anoxic brain injury secondary to the above episode. Patient currently has absent brainstem reflexes -COVID 19 pneumonitis causing hypoxic respiratory failure present for a few days, patient had not been taking any medications at home and resisting going to the hospital -Acute hypoxic respiratory failure secondary to COVID 19 pneumonia, ventilator assistance -Acute cardiogenic shock IV fluids, vasopressors been IV epinephrine -Acute ischemic liver from hypotension/shock liver Pressor support and follow liver functions -Lactic acidosis type II from cardiogenic shock Hydration -Chronic hypoxic respiratory failure on home oxygen from COPD -Acute COPD exacerbation in a current smoker Bronchodilators -Diabetes mellitus type 2 Follow Accu-Cheks -Essential hypertension Hold antihypertensive, currently in cardiogenic shock -Hyperlipidemia Continue with home medication -Chronic nicotine dependence patient cigarette smoker We'll give nicotine patch Patient is doing very poorly. Consultation to wood stock blank handler, cardiology, neurology. On the ventilator. Drips ordered included levo fed, Decadron, vasopressin, IV fluids. Patient's son and daughter the bedside. They understand poor prognosis. CODE STATUS is DO NOT RESUSCITATE Past Medical History Past Medical History: Asthma, COPD, Diabetes Mellitus, GERD/Reflux, Hyperlipidemia, Osteoarthritis (OA), Prostate Disorder Additional Past Medical History / Comment(s): enl. prostate History of Any Multi-Drug Resistant Organisms: None Reported Past Surgical History: Hernia Repair, Orthopedic Surgery Additional Past Surgical History / Comment(s): shoulders, toes,cysts on wrists, colonoscopy Past Anesthesia/Blood Transfusion Reactions: No Reported Reaction Past Psychological History: No Psychological Hx Reported Smoking Status: Current every day smoker Past Alcohol Use History: Occasional Past Drug Use History: None Reported - Past Family History Mother Family Medical History: Cancer Medications and Allergies Home Medications Medication Instructions Recorded Confirmed Type Ibuprofen [Motrin] 800 mg PO TID PRN 08/10/15 07/02/20 History Multivitamin [Men's Multi-Vitamin] 1 tab PO DAILY 08/10/15 07/02/20 History Niacin 500 mg PO DAILY 08/10/15 07/02/20 History gemfibroziL [Lopid] 600 mg PO AC-BID 08/10/15 07/02/20 History Albuterol Sulfate [Proair Hfa] 2 puff INHALATION RT-QID PRN 07/02/20 07/02/20 History Atorvastatin [Lipitor] 20 mg PO HS 07/02/20 07/02/20 History Calcium Carbonate/Vitamin D3 1 tab PO DAILY 07/02/20 07/02/20 History [Calcium 600 mg-Vit D3 10 mcg (400 Unit)] Fluticasone/Salmeterol [Advair 1 puff INHALATION RT-BID 07/02/20 07/02/20 History 250-50 Diskus] Gabapentin [Neurontin] 100 mg PO BID 07/02/20 07/02/20 History Hydrocodone/Acetaminophen [[place] 1 tab PO TID PRN 07/02/20 07/02/20 History 7.5-325] Ipratropium-Albuterol Nebulize 3 ml INHALATION RT-QID 07/02/20 07/02/20 History [Duoneb 0.5 mg-3 mg/3 ml Soln] Meclizine [Antivert] 25 mg PO TID PRN 07/02/20 07/02/20 History Metoprolol Tartrate [Lopressor] 25 mg PO DAILY 07/02/20 07/02/20 History Omeprazole [PriLOSEC] 40 mg PO DAILY 07/02/20 07/02/20 History Pioglitazone [Actos] 15 mg PO DAILY 07/02/20 07/02/20 History Theophylline 24 Hour [Brent-24] 400 mg PO DAILY 07/02/20 07/02/20 History predniSONE 10 mg PO DAILY 07/02/20 07/02/20 History Allergies Allergy/AdvReac Type Severity Reaction Status Date / Time aspirin Allergy Unknown Verified 07/02/20 08:25 Penicillins Allergy Rash/Hives Verified 07/02/20 08:25 Physical Exam Vitals: Vital Signs Temp Pulse Resp BP Pulse Ox 07/02/20 09:40 85 20 100/61 80 L 07/02/20 09:20 85 20 86/60 80 L 07/02/20 09:00 84 20 79/65 78 L 07/02/20 07:40 84 16 95/61 61 L 07/02/20 07:35 84 16 97/65 61 L 07/02/20 06:00 77 16 91/55 91 L 07/02/20 05:53 80 16 109/67 91 L 07/02/20 05:40 65 16 50/29 94 L 07/02/20 05:15 54 L 16 51/26 07/02/20 05:02 79 16 95/52 98 07/02/20 04:47 75 16 72/30 07/02/20 04:33 73 16 67/37 99 07/02/20 04:16 75 16 73/42 99 07/02/20 03:45 70 16 64/37 98 07/02/20 03:30 97.8 F 70 16 /26 99 07/02/20 03:15 68 16 66/34 98 07/02/20 03:00 69 16 54/31 99 07/02/20 02:45 74 16 61/27 98 07/02/20 02:30 80 16 100/55 98 Intake and Output 07/01/20 07/02/20 07/02/20 22:59 06:59 14:59 Intake Total 302.465 Output Total 650 Balance 302.465 -650 Intake: Intake, IV Titration 302.465 Amount EPINEPHrine 4 mg In 44.465 Dextrose 5% in Water 250 ml @ 0.01 MCG/KG/MIN 3. 429 mls/hr IV .Q24H ONE Rx#:[id number] Norepinephrine 8 mg In 258.000 Sodium Chloride 0.9% 250 ml @ 0.05 MCG/KG/MIN 8. 777 mls/hr IV .Q24H ONE Rx#:[id number] Output: Gastric Drainage 350 Urine 300 Other: Weight 90.718 kg Results CBC & Chem 7: 07/02/20 01:44 07/02/20 03:42 Labs: Abnormal Lab Results - Last 24 Hours (Table) 07/02/20 07/02/20 07/02/20 Range/Units 01:29 01:44 01:44 Metamyelocytes # (Man) 0.07 H (0) k/uL Myelocytes # (Manual) 0.07 H (0) k/uL Nucleated RBCs 4 H (0-0) /100 WBC PT 12.6 H (9.0-12.0) sec INR 1.2 H (<1.2) ABG pH (7.35-7.45) ABG pCO2 (35-45) mmHg ABG pO2 (83-108) mmHg ABG HCO3 (21-25) mmol/L ABG Total CO2 (19-24) mmol/L ABG O2 Saturation (94-97) % Potassium (3.5-5.1) mmol/L Chloride (98-107) mmol/L Carbon Dioxide (22-30) mmol/L BUN (9-20) mg/dL Creatinine (0.66-1.25) mg/dL Glucose (74-99) mg/dL POC Glucose (mg/dL) 189 H (75-99) mg/dL Plasma Lactic Acid Raymond (0.7-2.0) mmol/L Calcium (8.4-10.2) mg/dL Magnesium (1.6-2.3) mg/dL AST (17-59) U/L ALT (4-49) U/L Alkaline Phosphatase (38-126) U/L Troponin I (0.000-0.034) ng/mL Total Protein (6.3-8.2) g/dL Albumin (3.5-5.0) g/dL Urine Protein (Negative) Urine Ketones (Negative) Urine Blood (Negative) Coronavirus (PCR) (Not Detectd) 07/02/20 07/02/20 07/02/20 Range/Units 01:44 01:44 01:44 Metamyelocytes # (Man) (0) k/uL Myelocytes # (Manual) (0) k/uL Nucleated RBCs (0-0) /100 WBC PT (9.0-12.0) sec INR (<1.2) ABG pH (7.35-7.45) ABG pCO2 (35-45) mmHg ABG pO2 (83-108) mmHg ABG HCO3 (21-25) mmol/L ABG Total CO2 (19-24) mmol/L ABG O2 Saturation (94-97) % Potassium 6.5 H* (3.5-5.1) mmol/L Chloride 94 L (98-107) mmol/L Carbon Dioxide 10 L (22-30) mmol/L BUN 84 H (9-20) mg/dL Creatinine 4.53 H (0.66-1.25) mg/dL Glucose 218 H (74-99) mg/dL POC Glucose (mg/dL) (75-99) mg/dL Plasma Lactic Acid Raymond 18.8 H* (0.7-2.0) mmol/L Calcium (8.4-10.2) mg/dL Magnesium 2.9 H (1.6-2.3) mg/dL AST 6419 H (17-59) U/L ALT 2028 H (4-49) U/L Alkaline Phosphatase 129 H (38-126) U/L Troponin I 0.478 H* (0.000-0.034) ng/mL Total Protein 5.9 L (6.3-8.2) g/dL Albumin (3.5-5.0) g/dL Urine Protein (Negative) Urine Ketones (Negative) Urine Blood (Negative) Coronavirus (PCR) (Not Detectd) 07/02/20 07/02/20 07/02/20 Range/Units 02:22 02:53 03:42 Metamyelocytes # (Man) (0) k/uL Myelocytes # (Manual) (0) k/uL Nucleated RBCs (0-0) /100 WBC PT (9.0-12.0) sec INR (<1.2) ABG pH 6.81 L* (7.35-7.45) ABG pCO2 73 H* (35-45) mmHg ABG pO2 46 L* (83-108) mmHg ABG HCO3 11 L (21-25) mmol/L ABG Total CO2 14 L (19-24) mmol/L ABG O2 Saturation 46.3 L (94-97) % Potassium 5.7 H (3.5-5.1) mmol/L Chloride 109 H (98-107) mmol/L Carbon Dioxide 12 L (22-30) mmol/L BUN 68 H (9-20) mg/dL Creatinine 3.51 H (0.66-1.25) mg/dL Glucose 146 H (74-99) mg/dL POC Glucose (mg/dL) (75-99) mg/dL Plasma Lactic Acid Raymond (0.7-2.0) mmol/L Calcium 6.6 L (8.4-10.2) mg/dL Magnesium (1.6-2.3) mg/dL AST 6941 H (17-59) U/L ALT 2094 H (4-49) U/L Alkaline Phosphatase (38-126) U/L Troponin I (0.000-0.034) ng/mL Total Protein 3.8 L (6.3-8.2) g/dL Albumin 2.0 L (3.5-5.0) g/dL Urine Protein 1+ H (Negative) Urine Ketones Trace H (Negative) Urine Blood Trace H (Negative) Coronavirus (PCR) (Not Detectd) 07/02/20 07/02/20 07/02/20 Range/Units 05:16 06:03 07:59 Metamyelocytes # (Man) (0) k/uL Myelocytes # (Manual) (0) k/uL Nucleated RBCs (0-0) /100 WBC PT (9.0-12.0) sec INR (<1.2) ABG pH 6.84 L* (7.35-7.45) ABG pCO2 82 H* (35-45) mmHg ABG pO2 50 L* (83-108) mmHg ABG HCO3 14 L (21-25) mmol/L ABG Total CO2 17 L (19-24) mmol/L ABG O2 Saturation 57.2 L (94-97) % Potassium (3.5-5.1) mmol/L Chloride (98-107) mmol/L Carbon Dioxide (22-30) mmol/L BUN (9-20) mg/dL Creatinine (0.66-1.25) mg/dL Glucose (74-99) mg/dL POC Glucose (mg/dL) (75-99) mg/dL Plasma Lactic Acid Raymond 13.9 H* (0.7-2.0) mmol/L Calcium (8.4-10.2) mg/dL Magnesium (1.6-2.3) mg/dL AST (17-59) U/L ALT (4-49) U/L Alkaline Phosphatase (38-126) U/L Troponin I (0.000-0.034) ng/mL Total Protein (6.3-8.2) g/dL Albumin (3.5-5.0) g/dL Urine Protein (Negative) Urine Ketones (Negative) Urine Blood (Negative) Coronavirus (PCR) Detected A (Not Detectd) 07/02/20 Range/Units 09:22 Metamyelocytes # (Man) (0) k/uL Myelocytes # (Manual) (0) k/uL Nucleated RBCs (0-0) /100 WBC PT (9.0-12.0) sec INR (<1.2) ABG pH 6.88 L* (7.35-7.45) ABG pCO2 73 H* (35-45) mmHg ABG pO2 67 L (83-108) mmHg ABG HCO3 14 L (21-25) mmol/L ABG Total CO2 16 L (19-24) mmol/L ABG O2 Saturation 77.8 L (94-97) % Potassium (3.5-5.1) mmol/L Chloride (98-107) mmol/L Carbon Dioxide (22-30) mmol/L BUN (9-20) mg/dL Creatinine (0.66-1.25) mg/dL Glucose (74-99) mg/dL POC Glucose (mg/dL) (75-99) mg/dL Plasma Lactic Acid Raymond (0.7-2.0) mmol/L Calcium (8.4-10.2) mg/dL Magnesium (1.6-2.3) mg/dL AST (17-59) U/L ALT (4-49) U/L Alkaline Phosphatase (38-126) U/L Troponin I (0.000-0.034) ng/mL Total Protein (6.3-8.2) g/dL Albumin (3.5-5.0) g/dL Urine Protein (Negative) Urine Ketones (Negative) Urine Blood (Negative) Coronavirus (PCR) (Not Detectd)
--- NOTE | 2020-07-02 18:59 | P.DS ---
Providers Date of admission: 07/02/20 04:55 Expected date of discharge: 07/02/20 (Patient ) Attending physician: Vidal Leong Consults: 07/02/20 04:55 Consult Physician Stat Consulting Provider: Edgard Martinez Consult Reason/Comments: Status post cardiac arrest Do you want consulting provider notified?: Yes Consult Physician Urgent Consulting Provider: Saloni Mcarthur Consult Reason/Comments: Status post cardiac arrest Do you want consulting provider notified?: Yes 07/02/20 09:46 Consult Physician Routine Consulting Provider: Vincent Johnson Consult Reason/Comments: anoxic encephalopathy, cardiac arrest Do you want consulting provider notified?: Yes Primary care physician: [facility] Course: Chief Complaint: Unresponsive History of presenting complaint: This is a 59-year-old patient was brought by the ambulance to the ER was become unresponsive at home. Patient is intubated. Patient's had been become s ick and was diagnosed with COVID a few days ago. About 2 or 3 days ago the patient started showing symptoms as well even though is not tested for cord. Patient had worsening symptoms but has resisted going to the hospital. At the scene patient had no vital signs in the started ACLS intubated the patient. Patient had received a total of 5 mg of epinephrine. On arrival the patient does have ROSC in the ER. Patient is otherwise chronic stable medical conditions included COPD, diabetes, GERD, hyperlipidemia, prostatitis, BPH. Patient is a nonsmoker. Upon arrival to the ER she had an estimate 3 more times and was in PA. And no shockable rhythm. Received 8 CPR, epinephrine. Patient the ventilator. Patient was seen by the avionics technician earlier today and found with anoxic brain injury. With no spontaneous respirations no gag no corneal reflexes. Patient did test positive for COVID 19. Patient continued to do poorly in the ER. Was put on several supportive IV drips. Patient and I am absent brainstem reflexes. Patient seen by avionics technician, neurology, cardiology. Family decided to proceed and make the patient comfort care. Patient was terminally extubated. Patient Consultation: Dr. Martinez from pulmonary Dr. Pedraza from cardiology Dr. Cadena from neurology Past medical history to include: COPD, diabetes, GERD, hyperlipidemia, osteoarthritis, BPH Social history: Smoker. Alcohol occasionally. INVESTIGATIONS, reviewed in the clinical context: WBC 6.9 hemoglobin 13.7 platelets 265 potassium 6.5 bicarbonate 10 bun 84 creatinine 4.53 lactic acid 18.8 AST 6419 ALT 2027 troponin I 0.478 ABG: PH 6.8 pCO2 73 pO2 46 EKG tracing personally reviewed by me-right bundle branch block pattern, sinus rhythm Chest x-ray film personally reviewed by me-bilateral scattered infiltrates Computed tomography scan of the brain: Diffuse increased density in the extra- axial space suspicious for subarachnoid hemorrhage loss of de la vega-white matter differentiation Cause of : COVID 19 pneumonia Additional diagnosis: -Acute cardiopulmonary arrest at home., At the approximate downtime and a 1 hour. Patient had 3 more episodes of arrest in the ER and was in PA. Did have return of spontaneous circulation -Acute severe anoxic brain injury secondary to the above episode. Patient currently has absent brainstem reflexes -COVID 19 pneumonitis causing hypoxic respiratory failure present for a few days, patient had not been taking any medications at home and resisting going to the hospital -Acute hypoxic respiratory failure secondary to COVID 19 pneumonia, ventilator assistance -Acute cardiogenic shock IV fluids, vasopressors been IV epinephrine -Acute ischemic liver from hypotension/shock liver Pressor support and follow liver functions -Lactic acidosis type II from cardiogenic shock Hydration -Chronic hypoxic respiratory failure on home oxygen from COPD -Acute COPD exacerbation in a current smoker Bronchodilators -Diabetes mellitus type 2 Follow Accu-Cheks -Essential hypertension Hold antihypertensive, currently in cardiogenic shock -Hyperlipidemia Continue with home medication -Chronic nicotine dependence patient cigarette smoker We'll give nicotine patch Disposition: Patient Patient Condition at Discharge: Critical Plan - Discharge Summary New Discharge Prescriptions: No Action gemfibroziL [Lopid] 600 mg PO AC-BID Niacin 500 mg PO DAILY Multivitamin [Men's Multi-Vitamin] 1 tab PO DAILY Ibuprofen [Motrin] 800 mg PO TID PRN PRN Reason: Pain Theophylline 24 Hour [Brent-24] 400 mg PO DAILY Omeprazole [PriLOSEC] 40 mg PO DAILY Metoprolol Tartrate [Lopressor] 25 mg PO DAILY Gabapentin [Neurontin] 100 mg PO BID predniSONE 10 mg PO DAILY Meclizine [Antivert] 25 mg PO TID PRN PRN Reason: Vertigo Albuterol Sulfate [Proair Hfa] 2 puff INHALATION RT-QID PRN PRN Reason: Shortness Of Breath Pioglitazone [Actos] 15 mg PO DAILY Ipratropium-Albuterol Nebulize [Duoneb 0.5 mg-3 mg/3 ml Soln] 3 ml INHALATION RT-QID Hydrocodone/Acetaminophen [[place] 7.5-325] 1 tab PO TID PRN PRN Reason: Pain Calcium Carbonate/Vitamin D3 [Calcium 600 mg-Vit D3 10 mcg (400 Unit)] 1 tab PO DAILY Fluticasone/Salmeterol [Advair 250-50 Diskus] 1 puff INHALATION RT-BID Atorvastatin [Lipitor] 20 mg PO HS Discharge Medication List Ibuprofen [Motrin] 800 mg PO TID PRN 08/10/15 [History] Multivitamin [Men's Multi-Vitamin] 1 tab PO DAILY 08/10/15 [History] Niacin 500 mg PO DAILY 08/10/15 [History] gemfibroziL [Lopid] 600 mg PO AC-BID 08/10/15 [History] Albuterol Sulfate [Proair Hfa] 2 puff INHALATION RT-QID PRN 07/02/20 [History] Atorvastatin [Lipitor] 20 mg PO HS 07/02/20 [History] Calcium Carbonate/Vitamin D3 [Calcium 600 mg-Vit D3 10 mcg (400 Unit)] 1 tab PO DAILY 07/02/20 [History] Fluticasone/Salmeterol [Advair 250-50 Diskus] 1 puff INHALATION RT-BID 07/02/20 [History] Gabapentin [Neurontin] 100 mg PO BID 07/02/20 [History] Hydrocodone/Acetaminophen [[place] 7.5-325] 1 tab PO TID PRN 07/02/20 [History] Ipratropium-Albuterol Nebulize [Duoneb 0.5 mg-3 mg/3 ml Soln] 3 ml INHALATION RT-QID 07/02/20 [History] Meclizine [Antivert] 25 mg PO TID PRN 07/02/20 [History] Metoprolol Tartrate [Lopressor] 25 mg PO DAILY 07/02/20 [History] Omeprazole [PriLOSEC] 40 mg PO DAILY 07/02/20 [History] Pioglitazone [Actos] 15 mg PO DAILY 07/02/20 [History] Theophylline 24 Hour [Brent-24] 400 mg PO DAILY 07/02/20 [History] predniSONE 10 mg PO DAILY 07/02/20 [History] Follow up Appointment(s)/Referral(s): Jeison Fitch DO [Primary Care Provider] - 1-2 days Discharge Disposition: - Preliminary Cause of Preliminary Cause of : COVID 19 pneumonia
== END 2020-07-02 14:21 | disposition expired | DRG 208 ==
LOC: EC 01:21 → 2SICU 04:55 → 4SSUR 12:18
PROVIDERS: ADMIT Hospitalist; ATTEND Hospitalist
PROC: 0BH17EZ Insertion of Endotracheal Airway into Trachea, Via Natural or Artificial Opening (ICD-10-PCS; principal; 2020-07-02)
PROC: 5A1935Z Respiratory Ventilation, Less than 24 Consecutive Hours (ICD-10-PCS; principal; 2020-07-02)
PROC: 3E033XZ Introduction of Vasopressor into Peripheral Vein, Percutaneous Approach (ICD-10-PCS; 2020-07-02)
PROC: 5A12012 Performance of Cardiac Output, Single, Manual (ICD-10-PCS; 2020-07-02)
PROC: 02HV33Z Insertion of Infusion Device into Superior Vena Cava, Percutaneous Approach (ICD-10-PCS; 2020-07-02)
DX: U07.1 COVID-19 (principal); K72.00 Acute and subacute hepatic failure without coma; I60.9 Nontraumatic subarachnoid hemorrhage, unspecified; J12.82 Pneumonia due to coronavirus disease 2019; J96.21 Acute and chronic respiratory failure with hypoxia; J96.22 Acute and chronic respiratory failure with hypercapnia; G93.1 Anoxic brain damage, not elsewhere classified; G93.40 Encephalopathy, unspecified; E87.4 Mixed disorder of acid-base balance; J44.0 Chronic obstructive pulmonary disease with (acute) lower respiratory infection; J44.1 Chronic obstructive pulmonary disease with (acute) exacerbation; N17.9 Acute kidney failure, unspecified; J81.1 Chronic pulmonary edema; I46.9 Cardiac arrest, cause unspecified; N40.0 Benign prostatic hyperplasia without lower urinary tract symptoms; N41.9 Inflammatory disease of prostate, unspecified; Z51.5 Encounter for palliative care; Z66 Do not resuscitate; M19.90 Unspecified osteoarthritis, unspecified site; Z99.81 Dependence on supplemental oxygen; R74.01 Elevation of levels of liver transaminase levels; I10 Essential (primary) hypertension; R79.89 Other specified abnormal findings of blood chemistry; I45.10 Unspecified right bundle-branch block; E11.9 Type 2 diabetes mellitus without complications; E78.5 Hyperlipidemia, unspecified; E87.5 Hyperkalemia; K21.9 Gastro-esophageal reflux disease without esophagitis; F17.210 Nicotine dependence, cigarettes, uncomplicated; Z91.14 Patient's other noncompliance with medication regimen; Z79.84 Long term (current) use of oral hypoglycemic drugs; Z79.899 Other long term (current) drug therapy; Z91.19 Patient's noncompliance with other medical treatment and regimen; Z88.8 Allergy status to other drugs, medicaments and biological substances; Z79.52 Long term (current) use of systemic steroids
CPT/HCPCS: 36415; 36556; 36600; 70450; 71045; 80053; 81001; 82805; 83605; 83615; 83735; 83880; 84484; 85025; 85379; 85610; 85730; 86140; 87635; 93005; 93306; 96365; 96366; 96375; 99291